=== PATIENT | male | born 1945 | race Caucasian/White ===

== ENCOUNTER 2021-02-05 15:00 | Inpatient (IN) ==
[2021-02-05 16:09] LABS: Basophils # 0.1 K/mcL (0.0-0.2); Basophils % 0.6 %; Eosinophils # 0.1 K/mcL (0.0-0.6); Eosinophils % 1.2 %; Hemoglobin 12.3 g/dL (12.9-16.9); Immature Granulocytes % 2.7 % (0-4); Lymphocytes # 2.1 K/mcL (0.6-4.6); Lymphocytes % 18.4 %; Mean Corpuscular HGB Conc 32.4 g/dL (31.6-35.5); Mean Corpuscular Hemoglobin 29.3 pg (28.0-33.3); Mean Corpuscular Volume 90.5 fL (83.0-100.0); Mean Platelet Volume 9.2 fL (9.4-12.4); Monocytes # 1.1 K/mcL (0.0-1.3); Monocytes % 9.5 %; Neutrophils # 7.6 K/mcL (1.6-8.9); Platelet Count 358 K/mcL (140-400); Red Cell Distribution Width 13.2 % (11.5-14.5); Segmented Neutrophils % 67.6 %; White Blood Count 11.2 K/mcL (4.3-11.1)
[2021-02-05] MEDS ORDERED: 0.9 % Sodium Chloride 1,000 ML IVC ONE (16:11)
[2021-02-05 16:17] LABS: Alanine Aminotransferase 26 Units/L (7-52); Albumin 3.6 g/dL (3.5-5.7); Albumin/Globulin Ratio 0.9 (1.1-2.2); Alkaline Phosphatase 93 Units/L (34-104); Aspartate Amino Transferase 25 Units/L (13-39); BUN/Creatinine Ratio 16 (6-26); Bilirubin,Total 0.6 mg/dL (0.3-1.0); Blood Urea Nitrogen 35 mg/dL (8-23); Calcium 9.4 mg/dL (8.6-10.3); Carbon Dioxide 25 mEq/L (23-29); Chloride 97 mEq/L (98-107); Globulin 3.8 g/dL (2.4-3.5); Glucose 133 mg/dL (70-105); Osmolality,Calculated 284 (280-300); Potassium 4.8 mEq/L (3.5-5.1); Sodium 132 mEq/L (136-145); Total Protein 7.4 g/dL (6.4-8.9); eGFR For African Americans 35 (> 60); eGFR For Non-African Americans 29 (> 60)
[2021-02-05 16:24] LABS: Troponin I < 0.03 ng/mL (< 0.04)
[2021-02-05] MEDS ORDERED: Clindamycin 900 MG/50 ML 900 MG/50 ML IV.SOLN IVPB ONE (17:08)
[2021-02-05 17:34] LABS: Adenovirus Not Detected (Not Detect); Bordetella Pertussis Not Detected (Not Detect); Chlamydophila pneumoniae Not Detected (Not Detect); Coronavirus 229E Not Detected (Not Detect); Coronavirus HKU1 Not Detected (Not Detect); Coronavirus NL63 Not Detected (Not Detect); Coronavirus OC43 Not Detected (Not Detect); Human Metapneumovirus Not Detected (Not Detect); Human Rhinovirus/Enterovirus Not Detected (Not Detect); Influenza A Subtype 2009 H1 Not Detected (Not Detect); Influenza B Not Detected (Not Detect); Mycoplasma pneumoniae Not Detected (Not Detect); Parainfluenza Virus 1 Not Detected (Not Detect); Parainfluenza Virus 2 Not Detected (Not Detect); Parainfluenza Virus 3 Not Detected (Not Detect); Parainfluenza Virus 4 Not Detected (Not Detect); Respiratory Syncytial Virus Not Detected (Not Detect); SARS-CoV-2 Not Detected (Not Detect)
[2021-02-05 17:42] LABS: Bilirubin,Urine Negative (Negative); Blood,Urine Negative (Negative); Clarity,Urine Clear (Clear); Color,Urine Light-Yellow (Yellow); Glucose,Urine (UA) Normal (Normal); Ketones,Urine Negative (Negative); Leukocyte Esterase,Urine Negative (Negative); Nitrite,Urine Negative (Negative); PH,Urine 5.5 pH Units (5.0-8.0); Protein,Urine Negative (Neg-Trace); Urobilinogen,Urine Normal (Normal)
[2021-02-05] MEDS ORDERED: Vancomycin 1,750 MG in 0.9 % Sodium Chloride 250 ML IVPB SCH ×2 (18:00→19:00)
[2021-02-05] MEDS ORDERED: MOM Conc 10 ML UD.LIQ PO PRN (18:09)
[2021-02-05] MEDS ORDERED: Ondansetron ODT 4 MG TAB.RAPDIS SL PRN (18:09)
[2021-02-05] MEDS ORDERED: Mag Hydrox/Al Hydrox/Simeth 30 ML UDC PO PRN (18:09)
[2021-02-05] MEDS ORDERED: Naloxone 0.4 MG/ML INJ IVP PRN (18:09)
[2021-02-05] MEDS ORDERED: Melatonin 3 MG TABLET PO PRN (18:09)
[2021-02-05] MEDS ORDERED: *HR* Dextrose 50 % in Water (Vial) 50 ML VIAL IVP PRN (18:10)
[2021-02-05] MEDS ORDERED: D5% in Water 1,000 ML IVC PRN (18:10)
[2021-02-05] MEDS ORDERED: Dextrose Gel 15 GM/37.5 ML TUBE PO PRN ×2 (18:10)
[2021-02-05] MEDS ORDERED: Insulin LISPRO 300 UNITS/3 ML VIAL SUBQ SCH (18:15)
[2021-02-05 18:57] LABS: Estimated Average Glucose 197 mg/dl; Hemoglobin A1C 8.5 %
[2021-02-05] MEDS ORDERED: Vancomycin 1,750 MG/517.5 ML IV.SOLN IVPB SCH (20:00)
[2021-02-05] MEDS: 0.9 % Sodium Chloride 1,000 ML IVC SCH (22:43)
[2021-02-05] MEDS: Insulin LISPRO 300 UNITS/3 ML VIAL SUBQ SCH (22:44)
[2021-02-06] MEDS: Clindamycin 600 MG/50 ML 600 MG/50 ML IV.SOLN IVPB SCH ×3 (00:28→08:35)
[2021-02-06 05:36] LABS: Hematocrit 33.6 % (37.5-50.1); Hemoglobin 10.9 g/dL (12.9-16.9); Mean Corpuscular HGB Conc 32.4 g/dL (31.6-35.5); Mean Corpuscular Hemoglobin 29.8 pg (28.0-33.3); Mean Corpuscular Volume 91.8 fL (83.0-100.0); Mean Platelet Volume 9.2 fL (9.4-12.4); Platelet Count 319 K/mcL (140-400); Red Blood Count 3.66 M/mcL (4.19-5.50); Red Cell Distribution Width 13.2 % (11.5-14.5); White Blood Count 9.4 K/mcL (4.3-11.1)
[2021-02-06 05:56] LABS: Albumin 3.2 g/dL (3.5-5.7); Bilirubin,Total 0.6 mg/dL (0.3-1.0); Calcium 8.8 mg/dL (8.6-10.3); Globulin 3.2 g/dL (2.4-3.5); Potassium 4.5 mEq/L (3.5-5.1); Total Protein 6.4 g/dL (6.4-8.9)
[2021-02-06] MEDS: Insulin LISPRO 300 UNITS/3 ML VIAL SUBQ SCH ×4 (08:31→22:28)
[2021-02-06] MEDS ORDERED: Isosorbide MONOnitrate (24 HR) 60 MG TAB.ER.24H PO PRN (14:20)
[2021-02-06] MEDS ORDERED: Bupivacaine-MPF 0.25% 10 ML VIAL ONE (15:04)
[2021-02-06] MEDS ORDERED: Lidocaine/EPI 1:200k 1% PF 10 ML VIAL ONE (15:04)
[2021-02-06] MEDS ORDERED: Lidocaine 1% 20 ML MDV ONE (15:08)
[2021-02-06] MEDS: metroNIDAZOLE 500 MG TABLET PO SCH ×2 (15:09→22:28)
[2021-02-06] MEDS ORDERED: Acetaminophen IV 1,000 MG/100 ML BAG IVPB ONE (15:40)
[2021-02-06] MEDS ORDERED: Lidocaine -MPF 2% 2 ML VIAL ONE (15:40)
[2021-02-06] MEDS ORDERED: Famotidine 20 MG/2 ML VIAL ONE (15:40)
[2021-02-06] MEDS ORDERED: *HR* HYDROmorphone PF 0.5 MG/0.5 ML SYRINGE IVP PRN (16:18)
[2021-02-06] MEDS ORDERED: Ondansetron 4 MG/2 ML VIAL IVP PRN (16:18)
[2021-02-06] MEDS ORDERED: *HR* FentaNYL (PF) 100 MCG/2 ML VIAL ONE ×2 (16:19→16:58)
[2021-02-06] MEDS ORDERED: *HR* Succinylcholine 200 MG/10 ML VIAL IVP ONE (16:20)
[2021-02-06] MEDS ORDERED: Lidocaine HCL 4 ML Topical Solution (Laryng-O-Jet Kit Sterile Pak) TP ONE (16:20)
[2021-02-06] MEDS ORDERED: *HR* OxyCODONE Immed Rel 5 MG TABLET PO STA (17:47)
[2021-02-06] MEDS ORDERED: Cefepime HCl 1,000 MG in 0.9 % Sodium Chloride Mini Bag 100 ML IVPB SCH (18:00)
[2021-02-06] MEDS ORDERED: Acetaminophen 325 MG TABLET PO PRN (21:40)
[2021-02-06] MEDS ORDERED: Morphine Sulfate 2 MG/ML SYRINGE IVP ONE (21:42)
[2021-02-06] MEDS: Cefepime HCl 1,000 MG in 0.9 % Sodium Chloride Mini Bag 100 ML IVPB SCH (22:24)
[2021-02-06] MEDS: 0.9 % Sodium Chloride 1,000 ML IVC SCH (22:25)
[2021-02-06] MEDS: *HR* OxyCODONE/APAP 5/325 TABLET PO PRN (22:26)
[2021-02-06] MEDS: Nystatin SUSP 5 ML UD.LIQ PO SCH (22:26)
[2021-02-06] MEDS: carvediloL 6.25 MG TABLET PO SCH (22:27)
[2021-02-07] MEDS ORDERED: Vancomycin 1,750 MG/517.5 ML IV.SOLN IVPB SCH (01:00)
[2021-02-07] MEDS: *HR* OxyCODONE/APAP 5/325 TABLET PO PRN (04:58)
[2021-02-07 05:23] LABS: Basophils % 0.3 %; Hematocrit 35.9 % (37.5-50.1); Hemoglobin 11.4 g/dL (12.9-16.9); Immature Granulocytes % 1.7 % (0-4); Lymphocytes % 9.8 %; Mean Corpuscular HGB Conc 31.8 g/dL (31.6-35.5); Mean Corpuscular Hemoglobin 29.6 pg (28.0-33.3); Mean Corpuscular Volume 93.2 fL (83.0-100.0); Mean Platelet Volume 9.2 fL (9.4-12.4); Monocytes # 0.6 K/mcL (0.0-1.3); Monocytes % 5.9 %; Neutrophils # 8.5 K/mcL (1.6-8.9); Platelet Count 382 K/mcL (140-400); Red Blood Count 3.85 M/mcL (4.19-5.50); Red Cell Distribution Width 13.1 % (11.5-14.5); Segmented Neutrophils % 82.3 %; White Blood Count 10.3 K/mcL (4.3-11.1)
[2021-02-07 05:43] LABS: BUN/Creatinine Ratio 15 (6-26); Blood Urea Nitrogen 20 mg/dL (8-23); Calcium 9.2 mg/dL (8.6-10.3); Carbon Dioxide 23 mEq/L (23-29); Chloride 106 mEq/L (98-107); Glucose 206 mg/dL (70-105); Osmolality,Calculated 293 (280-300); Sodium 137 mEq/L (136-145); eGFR For African Americans > 60 (> 60); eGFR For Non-African Americans 54 (> 60)
[2021-02-07] MEDS: Nystatin SUSP 5 ML UD.LIQ PO SCH ×2 (08:24→20:55)
[2021-02-07] MEDS: carvediloL 6.25 MG TABLET PO SCH ×2 (08:24→20:55)
[2021-02-07] MEDS: lisinopriL 5 MG TABLET PO SCH (08:25)
[2021-02-07] MEDS: metroNIDAZOLE 500 MG TABLET PO SCH ×3 (08:26→20:55)
[2021-02-07] MEDS: Bumetanide 1 MG TABLET PO SCH (08:26)
[2021-02-07] MEDS: Aspirin Enteric Coated 81 MG Tablet PO SCH (08:27)
[2021-02-07] MEDS: Gabapentin 300 MG CAPSULE PO SCH (08:27)
[2021-02-07] MEDS: Cefepime HCl 1,000 MG in 0.9 % Sodium Chloride Mini Bag 100 ML IVPB SCH ×2 (08:30→21:46)
[2021-02-07] MEDS: Insulin LISPRO 300 UNITS/3 ML VIAL SUBQ SCH ×4 (08:36→20:59)
[2021-02-07] MEDS: *HR* HYDROcodone/Acet 5/325 mg TABLET PO PRN (10:51)
[2021-02-08 01:28] LABS: Basophils # 0.1 K/mcL (0.0-0.2); Basophils % 0.4 %; Eosinophils # 0.1 K/mcL (0.0-0.6); Eosinophils % 0.7 %; Hemoglobin 10.8 g/dL (12.9-16.9); Immature Granulocytes % 1.6 % (0-4); Lymphocytes # 1.6 K/mcL (0.6-4.6); Lymphocytes % 13.8 %; Mean Corpuscular HGB Conc 30.9 g/dL (31.6-35.5); Mean Corpuscular Hemoglobin 28.8 pg (28.0-33.3); Mean Corpuscular Volume 93.3 fL (83.0-100.0); Mean Platelet Volume 9.2 fL (9.4-12.4); Monocytes # 0.9 K/mcL (0.0-1.3); Monocytes % 7.6 %; Platelet Count 352 K/mcL (140-400); Red Blood Count 3.75 M/mcL (4.19-5.50); Red Cell Distribution Width 13.2 % (11.5-14.5); Segmented Neutrophils % 75.9 %; White Blood Count 11.8 K/mcL (4.3-11.1)
[2021-02-08 01:52] LABS: BUN/Creatinine Ratio 15 (6-26); Blood Urea Nitrogen 21 mg/dL (8-23); Carbon Dioxide 24 mEq/L (23-29); Chloride 106 mEq/L (98-107); Glucose 182 mg/dL (70-105); Osmolality,Calculated 296 (280-300); Potassium 4.2 mEq/L (3.5-5.1); Sodium 139 mEq/L (136-145); eGFR For African Americans > 60 (> 60); eGFR For Non-African Americans 51 (> 60)
[2021-02-08] MEDS: Vancomycin 2,000 MG/520 ML IV.SOLN IVPB SCH (04:16)
[2021-02-08] MEDS ORDERED: Vancomycin 1,750 MG/517.5 ML IV.SOLN IVPB SCH (05:00)
[2021-02-08] MEDS ORDERED: Lidocaine 1% 0 ML ONE (07:22)
[2021-02-08] MEDS: carvediloL 6.25 MG TABLET PO SCH ×2 (07:48→21:11)
[2021-02-08] MEDS ORDERED: Ondansetron 4 MG/2 ML VIAL ONE (07:53)
[2021-02-08] MEDS ORDERED: Lidocaine -MPF 2% 2 ML VIAL ONE (07:53)
[2021-02-08] MEDS: Aspirin Enteric Coated 81 MG Tablet PO SCH (07:54)
[2021-02-08] MEDS: Insulin LISPRO 300 UNITS/3 ML VIAL SUBQ SCH ×4 (07:54→21:05)
[2021-02-08] MEDS ORDERED: *HR* Propofol 200 MG/20 ML VIAL IVP ONE (07:54)
[2021-02-08] MEDS: Nystatin SUSP 5 ML UD.LIQ PO SCH ×2 (07:55→21:12)
[2021-02-08] MEDS: Bumetanide 1 MG TABLET PO SCH ×2 (07:55→09:39)
[2021-02-08] MEDS: allopurinoL 300 MG TABLET PO SCH ×2 (07:55→09:39)
[2021-02-08] MEDS: metroNIDAZOLE 500 MG TABLET PO SCH ×4 (07:55→21:12)
[2021-02-08] MEDS: lisinopriL 5 MG TABLET PO SCH (07:55)
[2021-02-08] MEDS: Gabapentin 300 MG CAPSULE PO SCH ×2 (07:55→09:39)
[2021-02-08] MEDS ORDERED: Naloxone 0.4 MG/ML INJ IVP PRN (08:12)
[2021-02-08] MEDS ORDERED: Albuterol 2.5 MG/3 ML NEBULIZER IH PRN (08:12)
[2021-02-08] MEDS ORDERED: Nitroglycerin 0.4 MG TAB.SUBL SL PRN (08:12)
[2021-02-08] MEDS: Cefepime HCl 1,000 MG in 0.9 % Sodium Chloride Mini Bag 100 ML IVPB SCH ×3 (08:20→21:18)
[2021-02-08] MEDS: *HR* HYDROcodone/Acet 5/325 mg TABLET PO PRN (09:38)
[2021-02-08] MEDS: *HR* OxyCODONE/APAP 5/325 TABLET PO PRN (12:23)
[2021-02-09] MEDS: Vancomycin 2,000 MG/520 ML IV.SOLN IVPB SCH (04:27)
[2021-02-09 05:29] LABS: Basophils # 0.1 K/mcL (0.0-0.2); Basophils % 0.5 %; Eosinophils # 0.1 K/mcL (0.0-0.6); Eosinophils % 0.9 %; Hematocrit 33.7 % (37.5-50.1); Hemoglobin 10.7 g/dL (12.9-16.9); Immature Granulocytes % 2.6 % (0-4); Lymphocytes # 1.9 K/mcL (0.6-4.6); Lymphocytes % 18.8 %; Mean Corpuscular HGB Conc 31.8 g/dL (31.6-35.5); Mean Corpuscular Hemoglobin 29.8 pg (28.0-33.3); Mean Corpuscular Volume 93.9 fL (83.0-100.0); Monocytes # 1.1 K/mcL (0.0-1.3); Monocytes % 10.5 %; Neutrophils # 6.7 K/mcL (1.6-8.9); Platelet Count 338 K/mcL (140-400); Red Blood Count 3.59 M/mcL (4.19-5.50); Red Cell Distribution Width 13.3 % (11.5-14.5); Segmented Neutrophils % 66.7 %
[2021-02-09 05:57] LABS: BUN/Creatinine Ratio 14 (6-26); Blood Urea Nitrogen 16 mg/dL (8-23); Calcium 8.6 mg/dL (8.6-10.3); Carbon Dioxide 22 mEq/L (23-29); Chloride 106 mEq/L (98-107); Glucose 143 mg/dL (70-105); Osmolality,Calculated 290 (280-300); Potassium 4.1 mEq/L (3.5-5.1); Sodium 138 mEq/L (136-145); eGFR For African Americans > 60 (> 60); eGFR For Non-African Americans > 60 (> 60)
[2021-02-09] MEDS: Aspirin Enteric Coated 81 MG Tablet PO SCH (08:16)
[2021-02-09] MEDS: allopurinoL 300 MG TABLET PO SCH (08:16)
[2021-02-09] MEDS: Bumetanide 1 MG TABLET PO SCH (08:16)
[2021-02-09] MEDS: Nystatin SUSP 5 ML UD.LIQ PO SCH ×2 (08:16→21:46)
[2021-02-09] MEDS: lisinopriL 5 MG TABLET PO SCH (08:17)
[2021-02-09] MEDS: metroNIDAZOLE 500 MG TABLET PO SCH ×3 (08:18→21:47)
[2021-02-09] MEDS: carvediloL 6.25 MG TABLET PO SCH ×2 (08:18→21:47)
[2021-02-09] MEDS: Gabapentin 300 MG CAPSULE PO SCH (08:18)
[2021-02-09] MEDS: Cefepime HCl 1,000 MG in 0.9 % Sodium Chloride Mini Bag 100 ML IVPB SCH ×2 (08:19→21:48)
[2021-02-09] MEDS: Insulin LISPRO 300 UNITS/3 ML VIAL SUBQ SCH ×4 (08:22→21:47)
[2021-02-09] MEDS: *HR* Heparin 5,000 UNIT/ML VIAL SQ SCH (17:17)
[2021-02-10 03:36] LABS: Basophils # 0.1 K/mcL (0.0-0.2); Basophils % 0.6 %; Eosinophils # 0.1 K/mcL (0.0-0.6); Eosinophils % 1.3 %; Hematocrit 34.7 % (37.5-50.1); Immature Granulocytes % 4.6 % (0-4); Lymphocytes % 20.6 %; Mean Corpuscular HGB Conc 31.7 g/dL (31.6-35.5); Mean Corpuscular Hemoglobin 29.4 pg (28.0-33.3); Mean Corpuscular Volume 92.8 fL (83.0-100.0); Mean Platelet Volume 8.8 fL (9.4-12.4); Monocytes # 0.9 K/mcL (0.0-1.3); Monocytes % 9.2 %; Neutrophils # 6.1 K/mcL (1.6-8.9); Platelet Count 338 K/mcL (140-400); Red Blood Count 3.74 M/mcL (4.19-5.50); Red Cell Distribution Width 13.3 % (11.5-14.5); Segmented Neutrophils % 63.7 %; White Blood Count 9.7 K/mcL (4.3-11.1)
[2021-02-10 03:54] LABS: BUN/Creatinine Ratio 14 (6-26); Blood Urea Nitrogen 16 mg/dL (8-23); Calcium 8.9 mg/dL (8.6-10.3); Carbon Dioxide 28 mEq/L (23-29); Chloride 104 mEq/L (98-107); Glucose 144 mg/dL (70-105); Osmolality,Calculated 292 (280-300); Potassium 3.8 mEq/L (3.5-5.1); Sodium 139 mEq/L (136-145); eGFR For African Americans > 60 (> 60); eGFR For Non-African Americans > 60 (> 60)
[2021-02-10] MEDS: Vancomycin 2,000 MG/520 ML IV.SOLN IVPB SCH (04:10)
[2021-02-10] MEDS: *HR* Heparin 5,000 UNIT/ML VIAL SQ SCH ×2 (06:08→17:32)
[2021-02-10] MEDS: lisinopriL 5 MG TABLET PO SCH (08:55)
[2021-02-10] MEDS: Bumetanide 1 MG TABLET PO SCH (08:55)
[2021-02-10] MEDS: Aspirin Enteric Coated 81 MG Tablet PO SCH (08:55)
[2021-02-10] MEDS: metroNIDAZOLE 500 MG TABLET PO SCH ×3 (08:55→20:23)
[2021-02-10] MEDS: Nystatin SUSP 5 ML UD.LIQ PO SCH ×2 (08:56→20:21)
[2021-02-10] MEDS: allopurinoL 300 MG TABLET PO SCH (08:56)
[2021-02-10] MEDS: carvediloL 6.25 MG TABLET PO SCH ×2 (08:56→20:23)
[2021-02-10] MEDS: Gabapentin 300 MG CAPSULE PO SCH (08:56)
[2021-02-10] MEDS: Insulin LISPRO 300 UNITS/3 ML VIAL SUBQ SCH ×4 (08:57→20:18)
[2021-02-10] MEDS: Cefepime HCl 1,000 MG in 0.9 % Sodium Chloride Mini Bag 100 ML IVPB SCH (08:58)
[2021-02-10] MEDS ORDERED: Gadolinium Contrast Agent (WT Based) IV PRN (11:55)
[2021-02-10] MEDS: Cefepime HCl 2,000 MG in 0.9 % Sodium Chloride Mini Bag 100 ML IVPB SCH (17:32)
[2021-02-11 02:47] LABS: BUN/Creatinine Ratio 11 (6-26); Blood Urea Nitrogen 13 mg/dL (8-23); Calcium 9.2 mg/dL (8.6-10.3); Carbon Dioxide 26 mEq/L (23-29); Chloride 103 mEq/L (98-107); Glucose 129 mg/dL (70-105); Osmolality,Calculated 292 (280-300); Sodium 140 mEq/L (136-145); eGFR For African Americans > 60 (> 60); eGFR For Non-African Americans > 60 (> 60)
[2021-02-11] MEDS: Vancomycin 2,000 MG/520 ML IV.SOLN IVPB SCH (03:49)
[2021-02-11] MEDS: Cefepime HCl 2,000 MG in 0.9 % Sodium Chloride Mini Bag 100 ML IVPB SCH ×2 (06:36→17:13)
[2021-02-11] MEDS: *HR* Heparin 5,000 UNIT/ML VIAL SQ SCH ×2 (06:37→17:13)
[2021-02-11] MEDS: lisinopriL 5 MG TABLET PO SCH (08:44)
[2021-02-11] MEDS: metroNIDAZOLE 500 MG TABLET PO SCH ×3 (08:44→21:55)
[2021-02-11] MEDS: Aspirin Enteric Coated 81 MG Tablet PO SCH (08:44)
[2021-02-11] MEDS: Bumetanide 1 MG TABLET PO SCH (08:45)
[2021-02-11] MEDS: Gabapentin 300 MG CAPSULE PO SCH (08:45)
[2021-02-11] MEDS: Nystatin SUSP 5 ML UD.LIQ PO SCH ×2 (08:45→21:55)
[2021-02-11] MEDS: carvediloL 6.25 MG TABLET PO SCH ×2 (08:45→21:55)
[2021-02-11] MEDS: allopurinoL 300 MG TABLET PO SCH (08:45)
[2021-02-11] MEDS: Insulin LISPRO 300 UNITS/3 ML VIAL SUBQ SCH ×4 (08:46→21:55)
[2021-02-12 03:43] LABS: Basophils # 0.1 K/mcL (0.0-0.2); Basophils % 1.1 %; Eosinophils # 0.2 K/mcL (0.0-0.6); Eosinophils % 1.4 %; Hematocrit 36.4 % (37.5-50.1); Hemoglobin 11.2 g/dL (12.9-16.9); Immature Granulocytes % 5.5 % (0-4); Lymphocytes # 2.5 K/mcL (0.6-4.6); Lymphocytes % 19.8 %; Mean Corpuscular HGB Conc 30.8 g/dL (31.6-35.5); Mean Corpuscular Hemoglobin 28.9 pg (28.0-33.3); Mean Corpuscular Volume 93.8 fL (83.0-100.0); Mean Platelet Volume 8.9 fL (9.4-12.4); Monocytes # 1.2 K/mcL (0.0-1.3); Monocytes % 9.4 %; Neutrophils # 7.9 K/mcL (1.6-8.9); Nucleated Red Blood Cells 0.2 /100 WBC (0); Platelet Count 334 K/mcL (140-400); Red Blood Count 3.88 M/mcL (4.19-5.50); Red Cell Distribution Width 13.5 % (11.5-14.5); Segmented Neutrophils % 62.8 %; White Blood Count 12.6 K/mcL (4.3-11.1)
[2021-02-12 03:59] LABS: INR 1.4; Prothrombin Time 15.7 Seconds (9.4-12.1)
[2021-02-12 04:00] LABS: BUN/Creatinine Ratio 13 (6-26); Blood Urea Nitrogen 18 mg/dL (8-23); Calcium 9.1 mg/dL (8.6-10.3); Carbon Dioxide 30 mEq/L (23-29); Chloride 103 mEq/L (98-107); Glucose 133 mg/dL (70-105); Osmolality,Calculated 292 (280-300); Potassium 4.2 mEq/L (3.5-5.1); Sodium 139 mEq/L (136-145); eGFR For African Americans > 60 (> 60); eGFR For Non-African Americans 50 (> 60)
[2021-02-12 04:30] LABS: Platelet Estimate Normal (Normal)
[2021-02-12] MEDS: Vancomycin 2,000 MG/520 ML IV.SOLN IVPB SCH (05:00)
[2021-02-12] MEDS: Cefepime HCl 2,000 MG in 0.9 % Sodium Chloride Mini Bag 100 ML IVPB SCH ×2 (05:42→16:17)
[2021-02-12] MEDS: *HR* Heparin 5,000 UNIT/ML VIAL SQ SCH ×2 (05:47→16:15)
[2021-02-12] MEDS: lisinopriL 5 MG TABLET PO SCH (09:19)
[2021-02-12] MEDS: Gabapentin 300 MG CAPSULE PO SCH (09:20)
[2021-02-12] MEDS: Aspirin Enteric Coated 81 MG Tablet PO SCH (09:20)
[2021-02-12] MEDS: metroNIDAZOLE 500 MG TABLET PO SCH ×3 (09:20→21:44)
[2021-02-12] MEDS: Bumetanide 1 MG TABLET PO SCH (09:20)
[2021-02-12] MEDS: carvediloL 6.25 MG TABLET PO SCH ×2 (09:21→16:16)
[2021-02-12] MEDS: Insulin LISPRO 300 UNITS/3 ML VIAL SUBQ SCH ×3 (09:21→16:33)
[2021-02-12] MEDS: Nystatin SUSP 5 ML UD.LIQ PO SCH ×3 (09:21→21:48)
[2021-02-12] MEDS: allopurinoL 300 MG TABLET PO SCH (09:21)
[2021-02-12] MEDS ORDERED: Vancomycin 1,000 MG VIAL ONE (12:30)
[2021-02-12] MEDS ORDERED: Lidocaine -MPF 2% 2 ML VIAL ONE (12:30)
[2021-02-12] MEDS ORDERED: *HR* FentaNYL (PF) 100 MCG/2 ML VIAL ONE (12:30)
[2021-02-12] MEDS: *HR* HYDROcodone/Acet 5/325 mg TABLET PO PRN (16:17)
[2021-02-12] MEDS ORDERED: Vancomycin 1,000 MG, Sodium Chloride IRRigation 1,000 ML IR ONE (18:35)
[2021-02-12] MEDS ORDERED: Insulin DETEMIR 100 UNIT/ML X5UNITS SUBQ SCH (21:00)
[2021-02-12] MEDS: *HR* OxyCODONE/APAP 5/325 TABLET PO PRN (21:43)
[2021-02-13 03:20] LABS: Basophils # 0.1 K/mcL (0.0-0.2); Basophils % 1.2 %; Eosinophils # 0.2 K/mcL (0.0-0.6); Eosinophils % 1.5 %; Hematocrit 37.3 % (37.5-50.1); Hemoglobin 11.5 g/dL (12.9-16.9); Immature Granulocytes % 5.9 % (0-4); Lymphocytes # 2.4 K/mcL (0.6-4.6); Lymphocytes % 21.1 %; Mean Corpuscular HGB Conc 30.8 g/dL (31.6-35.5); Mean Corpuscular Hemoglobin 29.1 pg (28.0-33.3); Mean Corpuscular Volume 94.4 fL (83.0-100.0); Mean Platelet Volume 8.9 fL (9.4-12.4); Monocytes # 0.9 K/mcL (0.0-1.3); Neutrophils # 7.1 K/mcL (1.6-8.9); Platelet Count 294 K/mcL (140-400); Red Blood Count 3.95 M/mcL (4.19-5.50); Red Cell Distribution Width 13.4 % (11.5-14.5); Segmented Neutrophils % 62.3 %; White Blood Count 11.4 K/mcL (4.3-11.1)
[2021-02-13 03:42] LABS: BUN/Creatinine Ratio 12 (6-26); Blood Urea Nitrogen 15 mg/dL (8-23); Calcium 9.2 mg/dL (8.6-10.3); Carbon Dioxide 28 mEq/L (23-29); Chloride 106 mEq/L (98-107); Glucose 113 mg/dL (70-105); Magnesium 1.5 mg/dL (1.6-2.6); Osmolality,Calculated 294 (280-300); Potassium 4.2 mEq/L (3.5-5.1); Sodium 141 mEq/L (136-145); eGFR For African Americans > 60 (> 60); eGFR For Non-African Americans 58 (> 60)
[2021-02-13 04:05] LABS: Platelet Estimate Normal (Normal)
[2021-02-13] MEDS: Cefepime HCl 2,000 MG in 0.9 % Sodium Chloride Mini Bag 100 ML IVPB SCH (06:22)
[2021-02-13] MEDS: *HR* Heparin 5,000 UNIT/ML VIAL SQ SCH ×2 (06:22→16:27)
[2021-02-13] MEDS: carvediloL 6.25 MG TABLET PO SCH ×2 (08:45→16:28)
[2021-02-13] MEDS: Aspirin Enteric Coated 81 MG Tablet PO SCH (08:46)
[2021-02-13] MEDS: Gabapentin 300 MG CAPSULE PO SCH (08:46)
[2021-02-13] MEDS: Nystatin SUSP 5 ML UD.LIQ PO SCH (08:48)
[2021-02-13] MEDS: allopurinoL 300 MG TABLET PO SCH (08:48)
[2021-02-13] MEDS: Insulin LISPRO 300 UNITS/3 ML VIAL SUBQ SCH ×3 (08:49→18:30)
[2021-02-13] MEDS: metroNIDAZOLE 500 MG TABLET PO SCH ×2 (08:51→16:28)
[2021-02-13] MEDS ORDERED: Vancomycin 1,500 MG/265 ML IV.SOLN IVPB SCH (10:00)
[2021-02-13 11:00] VITALS: BP 125/73
[2021-02-13] MEDS ORDERED: cefTRIAXone 2,000 MG in 0.9 % Sodium Chloride Mini Bag 100 ML IVPB SCH (15:00)
== END 2021-02-13 19:00 | disposition home health service (06) | DRG 616 ==
LOC: EMEROOARM 15:00 → 3NENU 15:00 → SUATTDRO 17:42 → 3NENU 18:09 → SUATTDRO 02-06 16:30
PROVIDERS: ADMIT Internal Medicine; ATTEND Pharmacist

== ENCOUNTER 2021-11-11 15:27 | Inpatient (IN) ==
[2021-11-11] MEDS ORDERED: Isovue-370 500 ML BOTTLE IVP ONE (20:23)
[2021-11-11] MEDS ORDERED: Piperacillin/Tazobactam 3.375 GM in 0.9 % Sodium Chloride Mini Bag 100 ML IVPB ONE (20:24)
[2021-11-11] MEDS ORDERED: Vancomycin 1,750 MG/517.5 ML IV.SOLN IVPB ONE (21:00)
[2021-11-11 22:04] LABS: Basophils # 0.1 K/mcL (0.0-0.2); Basophils % 0.3 %; Eosinophils % 0.1 %; Hematocrit 39.9 % (37.5-50.1); Hemoglobin 12.6 g/dL (12.9-16.9); Immature Granulocytes % 2.2 % (0-4); Lymphocytes # 1.9 K/mcL (0.6-4.6); Mean Corpuscular HGB Conc 31.6 g/dL (31.6-35.5); Mean Platelet Volume 9.2 fL (9.4-12.4); Monocytes # 0.7 K/mcL (0.0-1.3); Monocytes % 4.7 %; Neutrophils # 12.7 K/mcL (1.6-8.9); Platelet Count 320 K/mcL (140-400); Red Cell Distribution Width 15.1 % (11.5-14.5); Segmented Neutrophils % 80.7 %; White Blood Count 15.8 K/mcL (4.3-11.1)
[2021-11-11 22:11] LABS: INR 1.1; Prothrombin Time 12.5 Seconds (9.4-12.1)
[2021-11-11 22:13] LABS: Activated Partial Thrombo Time 32.9 Seconds (26.0-36.0)
[2021-11-11 22:25] LABS: BUN/Creatinine Ratio 32 (6-26); Blood Urea Nitrogen 37 mg/dL (8-23); C-Reactive Protein 28 mg/L (Less than 10); Calcium 9.6 mg/dL (8.6-10.3); Carbon Dioxide 25 mEq/L (23-29); Chloride 101 mEq/L (98-107); Glucose 106 mg/dL (70-105); Osmolality,Calculated 289 (280-300); Potassium 4.8 mEq/L (3.5-5.1); Sodium 135 mEq/L (136-145); eGFR For African Americans > 60 (> 60); eGFR For Non-African Americans > 60 (> 60)
[2021-11-12] MEDS ORDERED: Ondansetron 4 MG/2 ML VIAL IVP PRN ×2 (03:01→19:48)
[2021-11-12] MEDS ORDERED: Naloxone 0.4 MG/ML INJ IVP PRN ×2 (03:01→19:48)
[2021-11-12] MEDS ORDERED: D5% in Water 1,000 ML IVC PRN ×2 (06:28→19:48)
[2021-11-12] MEDS ORDERED: Dextrose Gel 15 GM/37.5 ML TUBE PO PRN ×4 (06:28→19:48)
[2021-11-12] MEDS ORDERED: *HR* Dextrose 50 % in Water (Syg) 50 ML SYRINGE IVP PRN ×2 (06:28→19:48)
[2021-11-12] MEDS ORDERED: Perflutren Lipid Microsphere 1.3 ML in 0.9 % Sodium Chloride 8.7 ML IVP PRN (06:43)
[2021-11-12 06:53] LABS: Basophils # 0.1 K/mcL (0.0-0.2); Basophils % 0.3 %; Eosinophils % 0.2 %; Hematocrit 36.6 % (37.5-50.1); Hemoglobin 11.3 g/dL (12.9-16.9); Immature Granulocytes % 2.1 % (0-4); Lymphocytes # 1.8 K/mcL (0.6-4.6); Lymphocytes % 10.5 %; Mean Corpuscular HGB Conc 30.9 g/dL (31.6-35.5); Mean Corpuscular Hemoglobin 29.4 pg (28.0-33.3); Mean Corpuscular Volume 95.3 fL (83.0-100.0); Mean Platelet Volume 9.2 fL (9.4-12.4); Monocytes # 0.9 K/mcL (0.0-1.3); Monocytes % 5.6 %; Neutrophils # 13.6 K/mcL (1.6-8.9); Platelet Count 307 K/mcL (140-400); Red Blood Count 3.84 M/mcL (4.19-5.50); Red Cell Distribution Width 15.3 % (11.5-14.5); Segmented Neutrophils % 81.3 %; White Blood Count 16.8 K/mcL (4.3-11.1)
[2021-11-12 06:58] LABS: INR 1.1; Prothrombin Time 12.7 Seconds (9.4-12.1)
[2021-11-12 07:01] LABS: Activated Partial Thrombo Time 28.3 Seconds (26.0-36.0)
[2021-11-12 07:44] LABS: Alanine Aminotransferase 19 Units/L (7-52); Albumin 2.8 g/dL (3.5-5.7); Albumin/Globulin Ratio 0.8 (1.1-2.2); Alkaline Phosphatase 83 Units/L (34-104); Aspartate Amino Transferase 14 Units/L (13-39); BUN/Creatinine Ratio 30 (6-26); Bilirubin,Total 0.4 mg/dL (0.3-1.0); Blood Urea Nitrogen 33 mg/dL (8-23); Calcium 8.9 mg/dL (8.6-10.3); Carbon Dioxide 26 mEq/L (23-29); Chloride 105 mEq/L (98-107); Globulin 3.4 g/dL (2.4-3.5); Glucose 83 mg/dL (70-105); Osmolality,Calculated 290 (280-300); Phosphorous 3.2 mg/dL (2.7-4.5); Potassium 4.6 mEq/L (3.5-5.1); Sodium 137 mEq/L (136-145); Total Protein 6.2 g/dL (6.4-8.9); eGFR For African Americans > 60 (> 60); eGFR For Non-African Americans > 60 (> 60)
[2021-11-12 09:14] LABS: Magnesium 1.6 mg/dL (1.6-2.6)
[2021-11-12] MEDS ORDERED: Vancomycin 1,250 MG/262.5 ML IV.SOLN IVPB SCH (11:00)
[2021-11-12] MEDS ORDERED: Gadolinium Contrast Agent (WT Based) IV PRN ×2 (11:12→19:48)
[2021-11-12] MEDS: Piperacillin/Tazobactam 3.375 GM in 0.9 % Sodium Chloride Mini Bag 100 ML IVPB SCH (11:54)
[2021-11-12] MEDS: Insulin LISPRO 300 UNITS/3 ML VIAL SUBQ SCH (12:18)
[2021-11-12] MEDS ORDERED: *HR* Heparin 5,000 UNIT/ML VIAL IVP PRN ×2 (14:12)
[2021-11-12] MEDS ORDERED: *HR* Heparin 5,000 UNIT/ML VIAL IVP ONE ×2 (14:12→19:48)
[2021-11-12] MEDS ORDERED: Heparin 25,000UNIT/250ML 1/2NS 25,000 UNIT/250 ML IV.SOLN IVC SCH (14:15)
[2021-11-12] MEDS ORDERED: *HR* Propofol 200 MG/20 ML VIAL IVP ONE ×2 (16:23→17:09)
[2021-11-12] MEDS ORDERED: Lidocaine -MPF 2% 5 ML VIAL ONE (16:23)
[2021-11-12] MEDS ORDERED: *HR* Magnesium Sulfate 1 GM/2 ML VIAL ONE (16:47)
[2021-11-12] MEDS ORDERED: *HR* FentaNYL (PF) 100 MCG/2 ML VIAL ONE (17:08)
[2021-11-12] MEDS ORDERED: Acetaminophen IV 1,000 MG/100 ML BAG IVPB ONE ×2 (17:52→18:07)
[2021-11-12] MEDS: *HR* FentaNYL (PF) 100 MCG/2 ML VIAL IVP PRN ×4 (18:13→18:37)
[2021-11-12] MEDS: *HR* HYDROmorphone (PF) 1 MG/ML SYRINGE IVP PRN ×4 (18:47→19:05)
[2021-11-12] MEDS ORDERED: Morphine Sulfate 2 MG/ML SYRINGE IVP ONE (20:48)
[2021-11-12] MEDS: Vancomycin 1,250 MG/262.5 ML IV.SOLN IVPB SCH (22:43)
[2021-11-13] MEDS: Insulin LISPRO 300 UNITS/3 ML VIAL SUBQ SCH ×4 (00:16→18:10)
[2021-11-13] MEDS: Piperacillin/Tazobactam 3.375 GM in 0.9 % Sodium Chloride Mini Bag 100 ML IVPB SCH ×3 (00:23→15:27)
[2021-11-13 04:31] LABS: Basophils # 0.1 K/mcL (0.0-0.2); Basophils % 0.4 %; Eosinophils % 0.1 %; Hematocrit 34.3 % (37.5-50.1); Hematocrit 34.4 % (37.5-50.1); Hemoglobin 10.7 g/dL (12.9-16.9); Hemoglobin 10.8 g/dL (12.9-16.9); Lymphocytes % 5.7 %; Mean Corpuscular HGB Conc 31.1 g/dL (31.6-35.5); Mean Corpuscular HGB Conc 31.5 g/dL (31.6-35.5); Mean Corpuscular Hemoglobin 30.1 pg (28.0-33.3); Mean Corpuscular Hemoglobin 30.6 pg (28.0-33.3); Mean Corpuscular Volume 96.6 fL (83.0-100.0); Mean Corpuscular Volume 97.2 fL (83.0-100.0); Mean Platelet Volume 9.3 fL (9.4-12.4); Mean Platelet Volume 9.7 fL (9.4-12.4); Monocytes # 1.1 K/mcL (0.0-1.3); Monocytes % 6.2 %; Neutrophils # 15.3 K/mcL (1.6-8.9); Platelet Count 272 K/mcL (140-400); Platelet Count 280 K/mcL (140-400); Red Blood Count 3.53 M/mcL (4.19-5.50); Red Blood Count 3.56 M/mcL (4.19-5.50); Red Cell Distribution Width 15.4 % (11.5-14.5); Red Cell Distribution Width 15.5 % (11.5-14.5); Segmented Neutrophils % 85.6 %; White Blood Count 17.9 K/mcL (4.3-11.1)
[2021-11-13 04:39] LABS: Heparin anti-factor XA UFH 0.04 IU/mL (0.30-0.70); INR 1.2; Prothrombin Time 13.3 Seconds (9.4-12.1)
[2021-11-13 04:52] LABS: BUN/Creatinine Ratio 27 (6-26); Blood Urea Nitrogen 30 mg/dL (8-23); Calcium 8.9 mg/dL (8.6-10.3); Carbon Dioxide 19 mEq/L (23-29); Chloride 105 mEq/L (98-107); Glucose 126 mg/dL (70-105); Magnesium 1.9 mg/dL (1.6-2.6); Osmolality,Calculated 290 (280-300); Potassium 4.8 mEq/L (3.5-5.1); Sodium 136 mEq/L (136-145); eGFR For African Americans > 60 (> 60); eGFR For Non-African Americans > 60 (> 60)
[2021-11-13 06:06] LABS: Estimated Average Glucose 174 mg/dl; Hemoglobin A1C 7.7 %
[2021-11-13] MEDS ORDERED: *HR* HYDROmorphone (PF) 1 MG/ML SYRINGE IM ONE (09:32)
[2021-11-13] MEDS ORDERED: *HR* HYDROmorphone (PF) 1 MG/ML SYRINGE IVP ONE (09:42)
[2021-11-13] MEDS: Vancomycin 1,250 MG/262.5 ML IV.SOLN IVPB SCH (11:10)
[2021-11-13] MEDS ORDERED: Cyanocobalamin (B-12) 1,000 MCG/ML VIAL SQ ONE (13:53)
[2021-11-13] MEDS: Iron Sucrose Complex 250 MG in 0.9 % Sodium Chloride 250 ML IVPB SCH (15:28)
[2021-11-13] MEDS ORDERED: Nitroglycerin 0.4 MG TAB.SUBL SL PRN (16:58)
[2021-11-13] MEDS: carvediloL 6.25 MG TABLET PO SCH (18:10)
[2021-11-13] MEDS: *HR* Heparin 5,000 UNIT/ML VIAL SQ SCH (18:14)
[2021-11-13] MEDS: Metoprolol XL (24 HR) Succ 25 MG TAB.ER.24H PO SCH (19:51)
[2021-11-13] MEDS: Simethicone 80 MG TAB.CHEW PO PRN (19:51)
[2021-11-13] MEDS: allopurinoL 300 MG TABLET PO SCH (19:52)
[2021-11-13] MEDS ORDERED: Insulin LISPRO 300 UNITS/3 ML VIAL SUBQ SCH (21:00)
[2021-11-13] MEDS ORDERED: Gabapentin 300 MG CAPSULE PO SCH (21:00)
[2021-11-13] MEDS ORDERED: 0.9 % Sodium Chloride 1,000 ML IVC ONE (23:46)
[2021-11-14] MEDS: Piperacillin/Tazobactam 3.375 GM in 0.9 % Sodium Chloride Mini Bag 100 ML IVPB SCH ×4 (00:07→23:24)
[2021-11-14 04:40] LABS: Basophils % 0.2 %; Eosinophils # 0.1 K/mcL (0.0-0.6); Eosinophils % 0.4 %; Hematocrit 29.3 % (37.5-50.1); Hemoglobin 9.3 g/dL (12.9-16.9); Immature Granulocytes % 2.3 % (0-4); Lymphocytes # 1.5 K/mcL (0.6-4.6); Lymphocytes % 11.8 %; Mean Corpuscular HGB Conc 31.7 g/dL (31.6-35.5); Mean Corpuscular Hemoglobin 30.2 pg (28.0-33.3); Mean Corpuscular Volume 95.1 fL (83.0-100.0); Mean Platelet Volume 9.2 fL (9.4-12.4); Monocytes % 7.6 %; Neutrophils # 9.9 K/mcL (1.6-8.9); Platelet Count 265 K/mcL (140-400); Red Blood Count 3.08 M/mcL (4.19-5.50); Red Cell Distribution Width 15.7 % (11.5-14.5); Segmented Neutrophils % 77.7 %; White Blood Count 12.8 K/mcL (4.3-11.1)
[2021-11-14 04:57] LABS: BUN/Creatinine Ratio 25 (6-26); Blood Urea Nitrogen 30 mg/dL (8-23); Calcium 8.6 mg/dL (8.6-10.3); Carbon Dioxide 21 mEq/L (23-29); Chloride 107 mEq/L (98-107); Glucose 105 mg/dL (70-105); Magnesium 1.9 mg/dL (1.6-2.6); Osmolality,Calculated 291 (280-300); Potassium 4.5 mEq/L (3.5-5.1); Sodium 137 mEq/L (136-145); eGFR For African Americans > 60 (> 60); eGFR For Non-African Americans > 60 (> 60)
[2021-11-14] MEDS: *HR* Heparin 5,000 UNIT/ML VIAL SQ SCH (05:15)
[2021-11-14] MEDS ORDERED: Ketorolac 30 MG/ML VIAL IVP ONE (05:22)
[2021-11-14] MEDS: Insulin LISPRO 300 UNITS/3 ML VIAL SUBQ SCH ×4 (08:04→20:35)
[2021-11-14] MEDS: Simethicone 80 MG TAB.CHEW PO PRN (08:04)
[2021-11-14] MEDS: Metoprolol XL (24 HR) Succ 25 MG TAB.ER.24H PO SCH (08:04)
[2021-11-14] MEDS: allopurinoL 300 MG TABLET PO SCH ×2 (08:06→20:34)
[2021-11-14] MEDS: Iron Sucrose Complex 250 MG in 0.9 % Sodium Chloride 250 ML IVPB SCH (08:13)
[2021-11-14] MEDS ORDERED: Bumetanide 1 MG TABLET PO SCH (09:00)
[2021-11-14] MEDS ORDERED: lisinopriL 5 MG TABLET PO SCH ×2 (09:00)
[2021-11-14] MEDS ORDERED: Aspirin Enteric Coated 81 MG Tablet PO SCH (09:00)
[2021-11-14] MEDS ORDERED: predniSONE 10 MG TABLET PO SCH (09:00)
[2021-11-14] MEDS ORDERED: Isosorbide MONOnitrate (24 HR) 30 MG TAB.ER.24H PO SCH (09:00)
[2021-11-14] MEDS: carvediloL 6.25 MG TABLET PO SCH (10:11)
[2021-11-14] MEDS ORDERED: 0.9 % Sodium Chloride 250 ML IVC ONE (11:57)
[2021-11-14] MEDS ORDERED: 0.9 % Sodium Chloride 500 ML IVC SCH (12:15)
[2021-11-14] MEDS ORDERED: *HR* Heparin 5,000 UNIT/ML VIAL IVP PRN ×4 (12:43→15:04)
[2021-11-14] MEDS ORDERED: 0.9 % Sodium Chloride 1,000 ML IVC SCH ×2 (12:44→15:04)
[2021-11-14] MEDS ORDERED: Heparin 25,000UNIT/250ML 1/2NS 25,000 UNIT/250 ML IV.SOLN IVC SCH (12:45)
[2021-11-14] MEDS ORDERED: 0.9 % Sodium Chloride 250 ML IVC PRN ×2 (12:48→15:04)
[2021-11-14 13:15] LABS: Hematocrit 29.7 % (37.5-50.1); Hemoglobin 9.5 g/dL (12.9-16.9); Mean Corpuscular Hemoglobin 30.1 pg (28.0-33.3); Mean Platelet Volume 9.6 fL (9.4-12.4); Platelet Count 289 K/mcL (140-400); Red Blood Count 3.16 M/mcL (4.19-5.50); Red Cell Distribution Width 15.6 % (11.5-14.5); White Blood Count 15.4 K/mcL (4.3-11.1)
[2021-11-14 13:23] LABS: Heparin anti-factor XA UFH < 0.04 IU/mL (0.30-0.70)
[2021-11-14 13:24] LABS: INR 1.2; Prothrombin Time 13.5 Seconds (9.4-12.1)
[2021-11-14] MEDS ORDERED: 0.9 % Sodium Chloride 500 ML ONE (13:45)
[2021-11-14] MEDS ORDERED: 0.9 % Sodium Chloride 500 ML IVC ONE (14:14)
[2021-11-14] MEDS ORDERED: Norepinephrine 4 MG/254 ML IV.SOLN IVC SCH (14:15)
[2021-11-14 14:39] LABS: Bilirubin,Urine Negative (Negative); Blood,Urine Negative (Negative); Clarity,Urine Clear (Clear); Color,Urine Light-Yellow (Yellow); Glucose,Urine (UA) Normal (Normal); Ketones,Urine Negative (Negative); Leukocyte Esterase,Urine Negative (Negative); Nitrite,Urine Negative (Negative); PH,Urine 5.5 pH Units (5.0-8.0); Protein,Urine Negative (Neg-Trace); Specific Gravity,Urine 1.021 (1.010-1.025); Urobilinogen,Urine Normal (Normal)
[2021-11-14] MEDS: Albumin Human 5% 12.5 GM/250 ML IV.SOLN IVC SCH ×2 (14:41→17:45)
[2021-11-14] MEDS ORDERED: Albumin Human 5% 12.5 GM/250 ML IV.SOLN IVC SCH (15:04)
[2021-11-14] MEDS ORDERED: *HR* Dextrose 50 % in Water (Syg) 50 ML SYRINGE IVP PRN (15:04)
[2021-11-14] MEDS ORDERED: Naloxone 0.4 MG/ML INJ IVP PRN (15:04)
[2021-11-14] MEDS ORDERED: Simethicone 80 MG TAB.CHEW PO PRN (15:04)
[2021-11-14] MEDS ORDERED: D5% in Water 1,000 ML IVC PRN (15:04)
[2021-11-14] MEDS ORDERED: Dextrose Gel 15 GM/37.5 ML TUBE PO PRN ×2 (15:04)
[2021-11-14] MEDS ORDERED: Ondansetron 4 MG/2 ML VIAL IVP PRN (15:04)
[2021-11-14] MEDS ORDERED: Nitroglycerin 0.4 MG TAB.SUBL SL PRN (15:04)
[2021-11-14] MEDS ORDERED: Amiodarone Premix 150 MG/100 ML BAG IVPB ONE (15:05)
[2021-11-14] MEDS: Amiodarone Premix 360 MG/200 ML BAG IVC ONE ×2 (15:38→21:03)
[2021-11-14] MEDS: Norepinephrine 4 MG/254 ML IV.SOLN IVC SCH ×2 (15:41→22:06)
[2021-11-14] MEDS: Heparin 25,000UNIT/250ML 1/2NS 25,000 UNIT/250 ML IV.SOLN IVC SCH (16:25)
[2021-11-14] MEDS ORDERED: carvediloL 6.25 MG TABLET PO SCH (17:00)
[2021-11-14] MEDS: Gabapentin 300 MG CAPSULE PO SCH (20:34)
[2021-11-14] MEDS ORDERED: Metoprolol XL (24 HR) Succ 25 MG TAB.ER.24H PO SCH (21:00)
[2021-11-14] MEDS: Amiodarone Premix 360 MG/200 ML BAG IVC SCH (22:24)
[2021-11-15 04:12] LABS: Basophils # 0.1 K/mcL (0.0-0.2); Basophils % 0.3 %; Eosinophils # 0.1 K/mcL (0.0-0.6); Eosinophils % 0.5 %; Hematocrit 29.3 % (37.5-50.1); Immature Granulocytes % 4.9 % (0-4); Lymphocytes # 1.8 K/mcL (0.6-4.6); Lymphocytes % 11.3 %; Mean Corpuscular HGB Conc 30.7 g/dL (31.6-35.5); Mean Corpuscular Hemoglobin 29.6 pg (28.0-33.3); Mean Corpuscular Volume 96.4 fL (83.0-100.0); Mean Platelet Volume 9.2 fL (9.4-12.4); Monocytes # 0.7 K/mcL (0.0-1.3); Monocytes % 4.4 %; Neutrophils # 12.8 K/mcL (1.6-8.9); Platelet Count 257 K/mcL (140-400); Red Blood Count 3.04 M/mcL (4.19-5.50); Red Cell Distribution Width 15.7 % (11.5-14.5); Segmented Neutrophils % 78.6 %; White Blood Count 16.3 K/mcL (4.3-11.1)
[2021-11-15 04:21] LABS: VBG Ionized Calcium 1.09 mmol/L (1.15-1.35)
[2021-11-15 04:32] LABS: Calcium 6.3 mg/dL (8.6-10.3); Magnesium 1.7 mg/dL (1.6-2.6); Potassium 3.6 mEq/L (3.5-5.1)
[2021-11-15] MEDS: Calcium Gluconate 1gm/50mL 1 GM/50 ML BAG IVPB SCH ×2 (05:28→05:49)
[2021-11-15] MEDS: Piperacillin/Tazobactam 3.375 GM in 0.9 % Sodium Chloride Mini Bag 100 ML IVPB SCH ×4 (07:41→23:40)
[2021-11-15] MEDS: Insulin LISPRO 300 UNITS/3 ML VIAL SUBQ SCH ×5 (07:41→19:39)
[2021-11-15] MEDS: Amiodarone Premix 360 MG/200 ML BAG IVC SCH ×2 (07:43→18:59)
[2021-11-15] MEDS: Aspirin Enteric Coated 81 MG Tablet PO SCH (07:47)
[2021-11-15] MEDS: predniSONE 10 MG TABLET PO SCH (07:48)
[2021-11-15] MEDS: allopurinoL 300 MG TABLET PO SCH ×2 (07:51→19:48)
[2021-11-15] MEDS ORDERED: lisinopriL 5 MG TABLET PO SCH (09:00)
[2021-11-15] MEDS ORDERED: Bumetanide 1 MG TABLET PO SCH (09:00)
[2021-11-15] MEDS ORDERED: Isosorbide MONOnitrate (24 HR) 30 MG TAB.ER.24H PO SCH (09:00)
[2021-11-15] MEDS: Heparin 25,000UNIT/250ML 1/2NS 25,000 UNIT/250 ML IV.SOLN IVC SCH ×2 (09:07→22:00)
[2021-11-15 14:20] LABS: Magnesium 2.4 mg/dL (1.6-2.6); Potassium 4.7 mEq/L (3.5-5.1)
[2021-11-15] MEDS: Norepinephrine 4 MG/254 ML IV.SOLN IVC SCH (16:19)
[2021-11-15] MEDS: Gabapentin 300 MG CAPSULE PO SCH (19:48)
[2021-11-16 04:38] LABS: Basophils % 0.2 %; Eosinophils # 0.1 K/mcL (0.0-0.6); Eosinophils % 1.2 %; Hematocrit 28.3 % (37.5-50.1); Hemoglobin 8.9 g/dL (12.9-16.9); Immature Granulocytes % 3.2 % (0-4); Lymphocytes # 1.6 K/mcL (0.6-4.6); Lymphocytes % 13.3 %; Mean Corpuscular HGB Conc 31.4 g/dL (31.6-35.5); Mean Corpuscular Volume 95.3 fL (83.0-100.0); Mean Platelet Volume 9.6 fL (9.4-12.4); Monocytes # 0.7 K/mcL (0.0-1.3); Monocytes % 5.7 %; Platelet Count 223 K/mcL (140-400); Red Blood Count 2.97 M/mcL (4.19-5.50); Red Cell Distribution Width 15.8 % (11.5-14.5); Segmented Neutrophils % 76.4 %; White Blood Count 11.7 K/mcL (4.3-11.1)
[2021-11-16 04:59] LABS: Albumin 2.7 g/dL (3.5-5.7); Bilirubin,Total 0.6 mg/dL (0.3-1.0); Calcium 8.1 mg/dL (8.6-10.3); Globulin 2.6 g/dL (2.4-3.5); Magnesium 2.3 mg/dL (1.6-2.6); Phosphorous 4.2 mg/dL (2.7-4.5); Potassium 4.6 mEq/L (3.5-5.1); Total Protein 5.3 g/dL (6.4-8.9)
[2021-11-16] MEDS: Piperacillin/Tazobactam 3.375 GM in 0.9 % Sodium Chloride Mini Bag 100 ML IVPB SCH (08:31)
[2021-11-16] MEDS: Insulin LISPRO 300 UNITS/3 ML VIAL SUBQ SCH ×4 (08:51→21:30)
[2021-11-16 09:13] LABS: Troponin I 7.23 ng/mL (< 0.04)
[2021-11-16] MEDS: allopurinoL 300 MG TABLET PO SCH ×2 (12:13→21:08)
[2021-11-16] MEDS: Aspirin Enteric Coated 81 MG Tablet PO SCH (12:13)
[2021-11-16] MEDS: predniSONE 10 MG TABLET PO SCH (12:13)
[2021-11-16] MEDS: Norepinephrine 4 MG/254 ML IV.SOLN IVC SCH ×2 (12:16→23:50)
[2021-11-16] MEDS: Heparin 25,000UNIT/250ML 1/2NS 25,000 UNIT/250 ML IV.SOLN IVC SCH (13:10)
[2021-11-16] MEDS ORDERED: Albumin 25% 25gram/100mL 25 GM/100 ML IV.SOLN IVPB ONE (13:34)
[2021-11-16] MEDS ORDERED: Furosemide 20 MG/2 ML VIAL IVP ONE (15:00)
[2021-11-16] MEDS: ceFAZolin 2,000 MG in 0.9 % Sodium Chloride 100 ML IVPB SCH ×2 (16:09→23:50)
[2021-11-16] MEDS: Gabapentin 300 MG CAPSULE PO SCH (21:08)
[2021-11-17 04:14] LABS: Basophils % 0.3 %; Eosinophils # 0.1 K/mcL (0.0-0.6); Eosinophils % 0.7 %; Hematocrit 27.4 % (37.5-50.1); Hemoglobin 8.6 g/dL (12.9-16.9); Lymphocytes # 1.1 K/mcL (0.6-4.6); Lymphocytes % 12.3 %; Mean Corpuscular HGB Conc 31.4 g/dL (31.6-35.5); Mean Corpuscular Hemoglobin 29.9 pg (28.0-33.3); Mean Corpuscular Volume 95.1 fL (83.0-100.0); Mean Platelet Volume 9.6 fL (9.4-12.4); Monocytes # 0.6 K/mcL (0.0-1.3); Monocytes % 6.1 %; Neutrophils # 7.1 K/mcL (1.6-8.9); Platelet Count 209 K/mcL (140-400); Red Blood Count 2.88 M/mcL (4.19-5.50); Segmented Neutrophils % 77.6 %; White Blood Count 9.2 K/mcL (4.3-11.1)
[2021-11-17 04:31] LABS: Calcium 8.1 mg/dL (8.6-10.3); Magnesium 2.2 mg/dL (1.6-2.6); Potassium 4.5 mEq/L (3.5-5.1)
[2021-11-17] MEDS ORDERED: Perflutren Lipid Microsphere 1.3 ML in 0.9 % Sodium Chloride 8.7 ML IVP PRN (06:52)
[2021-11-17] MEDS: allopurinoL 300 MG TABLET PO SCH ×2 (09:18→20:25)
[2021-11-17] MEDS: Aspirin Enteric Coated 81 MG Tablet PO SCH (09:18)
[2021-11-17] MEDS: predniSONE 10 MG TABLET PO SCH (09:18)
[2021-11-17] MEDS: Insulin LISPRO 300 UNITS/3 ML VIAL SUBQ SCH ×4 (09:20→20:25)
[2021-11-17] MEDS: ceFAZolin 2,000 MG in 0.9 % Sodium Chloride 100 ML IVPB SCH (09:22)
[2021-11-17] MEDS ORDERED: Albumin 25% 25gram/100mL 25 GM/100 ML IV.SOLN IVPB ONE (10:00)
[2021-11-17] MEDS: Norepinephrine 4 MG/254 ML IV.SOLN IVC SCH (11:17)
[2021-11-17] MEDS ORDERED: Furosemide 20 MG/2 ML VIAL IVP ONE ×2 (11:40→14:55)
[2021-11-17] MEDS ORDERED: D5% in Water 1,000 ML IVC PRN (14:55)
[2021-11-17] MEDS ORDERED: *HR* Dextrose 50 % in Water (Syg) 50 ML SYRINGE IVP PRN (14:55)
[2021-11-17] MEDS ORDERED: *HR* Heparin 5,000 UNIT/ML VIAL IVP PRN (14:55)
[2021-11-17] MEDS ORDERED: 0.9 % Sodium Chloride 250 ML IVC PRN (14:55)
[2021-11-17] MEDS ORDERED: Ondansetron 4 MG/2 ML VIAL IVP PRN (14:55)
[2021-11-17] MEDS ORDERED: Naloxone 0.4 MG/ML INJ IVP PRN (14:55)
[2021-11-17] MEDS ORDERED: Dextrose Gel 15 GM/37.5 ML TUBE PO PRN ×2 (14:55)
[2021-11-17] MEDS: CeFAZolin 2,000 MG/120 ML BAG IVPB SCH ×2 (16:46→23:37)
[2021-11-17] MEDS: Heparin 25,000UNIT/250ML 1/2NS 25,000 UNIT/250 ML IV.SOLN IVC SCH ×2 (19:34→19:36)
[2021-11-17] MEDS: Gabapentin 300 MG CAPSULE PO SCH (20:25)
[2021-11-18 04:35] LABS: VBG Ionized Calcium 1.25 mmol/L (1.15-1.35)
[2021-11-18 04:49] LABS: Basophils % 0.3 %; Eosinophils % 0.4 %; Hematocrit 27.4 % (37.5-50.1); Hemoglobin 8.6 g/dL (12.9-16.9); Immature Granulocytes % 3.8 % (0-4); Lymphocytes # 1.4 K/mcL (0.6-4.6); Lymphocytes % 13.2 %; Mean Corpuscular HGB Conc 31.4 g/dL (31.6-35.5); Mean Corpuscular Hemoglobin 29.8 pg (28.0-33.3); Mean Corpuscular Volume 94.8 fL (83.0-100.0); Mean Platelet Volume 9.9 fL (9.4-12.4); Monocytes # 0.7 K/mcL (0.0-1.3); Monocytes % 6.3 %; Neutrophils # 7.8 K/mcL (1.6-8.9); Platelet Count 219 K/mcL (140-400); Red Blood Count 2.89 M/mcL (4.19-5.50); Red Cell Distribution Width 16.6 % (11.5-14.5); White Blood Count 10.3 K/mcL (4.3-11.1)
[2021-11-18 05:00] LABS: Albumin 2.9 g/dL (3.5-5.7); Albumin/Globulin Ratio 1.1 (1.1-2.2); Bilirubin,Direct 0.2 mg/dL (0.0-0.2); Bilirubin,Indirect 0.2 mg/dL (0.0-1.0); Bilirubin,Total 0.4 mg/dL (0.3-1.0); Calcium 8.4 mg/dL (8.6-10.3); Globulin 2.6 g/dL (2.4-3.5); Phosphorous 3.3 mg/dL (2.7-4.5); Potassium 4.3 mEq/L (3.5-5.1); Total Protein 5.5 g/dL (6.4-8.9)
[2021-11-18] MEDS: allopurinoL 300 MG TABLET PO SCH ×2 (09:25→20:12)
[2021-11-18] MEDS: Aspirin Enteric Coated 81 MG Tablet PO SCH (09:25)
[2021-11-18] MEDS: predniSONE 10 MG TABLET PO SCH (09:25)
[2021-11-18] MEDS: Insulin LISPRO 300 UNITS/3 ML VIAL SUBQ SCH ×4 (09:36→20:11)
[2021-11-18] MEDS: CeFAZolin 2,000 MG/120 ML BAG IVPB SCH ×3 (10:10→23:20)
[2021-11-18] MEDS: Heparin 25,000UNIT/250ML 1/2NS 25,000 UNIT/250 ML IV.SOLN IVC SCH (10:13)
[2021-11-18] MEDS: Nitroglycerin 0.4 MG TAB.SUBL SL PRN ×2 (13:11→13:18)
[2021-11-18] MEDS: Gabapentin 300 MG CAPSULE PO SCH (20:11)
[2021-11-19] MEDS: Heparin 25,000UNIT/250ML 1/2NS 25,000 UNIT/250 ML IV.SOLN IVC SCH ×2 (02:42→18:21)
[2021-11-19 03:07] LABS: Basophils % 0.3 %; Eosinophils % 0.3 %; Hematocrit 25.8 % (37.5-50.1); Hemoglobin 8.3 g/dL (12.9-16.9); Immature Granulocytes % 2.7 % (0-4); Lymphocytes # 1.4 K/mcL (0.6-4.6); Lymphocytes % 13.1 %; Mean Corpuscular HGB Conc 32.2 g/dL (31.6-35.5); Mean Corpuscular Hemoglobin 30.7 pg (28.0-33.3); Mean Corpuscular Volume 95.6 fL (83.0-100.0); Mean Platelet Volume 9.7 fL (9.4-12.4); Monocytes # 0.8 K/mcL (0.0-1.3); Monocytes % 7.8 %; Neutrophils # 7.9 K/mcL (1.6-8.9); Platelet Count 218 K/mcL (140-400); Segmented Neutrophils % 75.8 %; White Blood Count 10.4 K/mcL (4.3-11.1)
[2021-11-19 03:26] LABS: Calcium 8.3 mg/dL (8.6-10.3); Magnesium 1.8 mg/dL (1.6-2.6); Phosphorous 2.6 mg/dL (2.7-4.5); Potassium 4.2 mEq/L (3.5-5.1)
[2021-11-19] MEDS: *HR* Heparin 5,000 UNIT/ML VIAL IVP PRN (03:46)
[2021-11-19] MEDS ORDERED: Calcium Gluconate 1gm/50mL 1 GM/50 ML BAG IVPB ONE (07:41)
[2021-11-19] MEDS: Aspirin Enteric Coated 81 MG Tablet PO SCH (08:24)
[2021-11-19] MEDS: predniSONE 10 MG TABLET PO SCH (08:24)
[2021-11-19] MEDS: Insulin LISPRO 300 UNITS/3 ML VIAL SUBQ SCH ×4 (08:25→20:31)
[2021-11-19] MEDS: allopurinoL 300 MG TABLET PO SCH ×2 (08:25→20:30)
[2021-11-19] MEDS: CeFAZolin 2,000 MG/120 ML BAG IVPB SCH ×3 (08:39→23:34)
[2021-11-19] MEDS: Gabapentin 300 MG CAPSULE PO SCH (20:31)
[2021-11-19] MEDS: Lactobacillus 1 EACH CAP.SPRINK PO SCH (20:31)
[2021-11-20 04:05] LABS: Basophils % 0.2 %; Eosinophils % 0.2 %; Hematocrit 27.4 % (37.5-50.1); Hemoglobin 8.5 g/dL (12.9-16.9); Immature Granulocytes % 3.3 % (0-4); Lymphocytes # 1.8 K/mcL (0.6-4.6); Lymphocytes % 14.2 %; Mean Corpuscular Hemoglobin 29.7 pg (28.0-33.3); Mean Corpuscular Volume 95.8 fL (83.0-100.0); Mean Platelet Volume 9.8 fL (9.4-12.4); Monocytes # 1.2 K/mcL (0.0-1.3); Monocytes % 9.5 %; Neutrophils # 9.4 K/mcL (1.6-8.9); Nucleated Red Blood Cells 0.2 /100 WBC (0); Platelet Count 212 K/mcL (140-400); Red Blood Count 2.86 M/mcL (4.19-5.50); Red Cell Distribution Width 17.1 % (11.5-14.5); Segmented Neutrophils % 72.6 %
[2021-11-20 04:17] LABS: Magnesium 1.7 mg/dL (1.6-2.6); Phosphorous 2.7 mg/dL (2.7-4.5)
[2021-11-20 04:19] LABS: Calcium 8.5 mg/dL (8.6-10.3); Potassium 4.4 mEq/L (3.5-5.1)
[2021-11-20] MEDS: CeFAZolin 2,000 MG/120 ML BAG IVPB SCH ×2 (07:40→17:35)
[2021-11-20] MEDS: Heparin 25,000UNIT/250ML 1/2NS 25,000 UNIT/250 ML IV.SOLN IVC SCH ×2 (07:40→19:55)
[2021-11-20] MEDS: allopurinoL 300 MG TABLET PO SCH ×2 (07:40→20:28)
[2021-11-20] MEDS: Aspirin Enteric Coated 81 MG Tablet PO SCH (07:40)
[2021-11-20] MEDS: Lactobacillus 1 EACH CAP.SPRINK PO SCH ×2 (07:40→20:27)
[2021-11-20] MEDS: Insulin LISPRO 300 UNITS/3 ML VIAL SUBQ SCH ×4 (07:40→20:53)
[2021-11-20] MEDS: predniSONE 10 MG TABLET PO SCH (07:40)
[2021-11-20] MEDS ORDERED: carvediloL 6.25 MG TABLET PO SCH (17:00)
[2021-11-20] MEDS: Gabapentin 300 MG CAPSULE PO SCH (20:27)
[2021-11-21] MEDS: CeFAZolin 2,000 MG/120 ML BAG IVPB SCH ×3 (03:30→16:00)
[2021-11-21 04:19] LABS: Basophils % 0.2 %; Eosinophils # 0.1 K/mcL (0.0-0.6); Eosinophils % 0.5 %; Hematocrit 26.3 % (37.5-50.1); Hemoglobin 8.3 g/dL (12.9-16.9); Immature Granulocytes % 4.1 % (0-4); Lymphocytes # 1.7 K/mcL (0.6-4.6); Lymphocytes % 12.9 %; Mean Corpuscular HGB Conc 31.6 g/dL (31.6-35.5); Mean Corpuscular Hemoglobin 30.1 pg (28.0-33.3); Mean Corpuscular Volume 95.3 fL (83.0-100.0); Mean Platelet Volume 10.1 fL (9.4-12.4); Monocytes # 1.1 K/mcL (0.0-1.3); Monocytes % 8.6 %; Neutrophils # 9.5 K/mcL (1.6-8.9); Nucleated Red Blood Cells 0.2 /100 WBC (0); Platelet Count 217 K/mcL (140-400); Red Blood Count 2.76 M/mcL (4.19-5.50); Red Cell Distribution Width 17.3 % (11.5-14.5); Segmented Neutrophils % 73.7 %; White Blood Count 12.9 K/mcL (4.3-11.1)
[2021-11-21 04:29] LABS: Magnesium 1.7 mg/dL (1.6-2.6); Phosphorous 2.4 mg/dL (2.7-4.5)
[2021-11-21 04:30] LABS: BUN/Creatinine Ratio 20 (6-26); Blood Urea Nitrogen 24 mg/dL (8-23); Calcium 8.5 mg/dL (8.6-10.3); Carbon Dioxide 24 mEq/L (23-29); Chloride 107 mEq/L (98-107); Glucose 107 mg/dL (70-105); Osmolality,Calculated 289 (280-300); Potassium 4.2 mEq/L (3.5-5.1); Sodium 137 mEq/L (136-145); eGFR For African Americans > 60 (> 60); eGFR For Non-African Americans 58 (> 60)
[2021-11-21] MEDS: Heparin 25,000UNIT/250ML 1/2NS 25,000 UNIT/250 ML IV.SOLN IVC SCH (09:14)
[2021-11-21] MEDS: Metoprolol XL (24 HR) Succ 25 MG TAB.ER.24H PO SCH (09:15)
[2021-11-21] MEDS: Insulin LISPRO 300 UNITS/3 ML VIAL SUBQ SCH ×4 (09:15→20:02)
[2021-11-21] MEDS: Aspirin Enteric Coated 81 MG Tablet PO SCH (09:15)
[2021-11-21] MEDS: Lactobacillus 1 EACH CAP.SPRINK PO SCH ×2 (09:15→20:00)
[2021-11-21] MEDS: predniSONE 10 MG TABLET PO SCH (09:15)
[2021-11-21] MEDS: allopurinoL 300 MG TABLET PO SCH ×2 (09:20→19:59)
[2021-11-21] MEDS: polyethylene glycoL 3350 17 GM POWD.PACK PO SCH (17:01)
[2021-11-21] MEDS: Gabapentin 300 MG CAPSULE PO SCH (20:01)
[2021-11-22] MEDS: CeFAZolin 2,000 MG/120 ML BAG IVPB SCH ×4 (00:22→23:23)
[2021-11-22 06:32] LABS: Hematocrit 26.9 % (37.5-50.1); Hemoglobin 8.6 g/dL (12.9-16.9); Mean Corpuscular Hemoglobin 30.9 pg (28.0-33.3); Mean Corpuscular Volume 96.8 fL (83.0-100.0); Mean Platelet Volume 9.9 fL (9.4-12.4); Platelet Count 230 K/mcL (140-400); Red Blood Count 2.78 M/mcL (4.19-5.50); Red Cell Distribution Width 17.9 % (11.5-14.5)
[2021-11-22] MEDS: Heparin 25,000UNIT/250ML 1/2NS 25,000 UNIT/250 ML IV.SOLN IVC SCH (06:54)
[2021-11-22 07:26] LABS: BUN/Creatinine Ratio 19 (6-26); Blood Urea Nitrogen 21 mg/dL (8-23); Calcium 8.5 mg/dL (8.6-10.3); Carbon Dioxide 24 mEq/L (23-29); Chloride 107 mEq/L (98-107); Glucose 95 mg/dL (70-105); Osmolality,Calculated 289 (280-300); Phosphorous 2.3 mg/dL (2.7-4.5); Potassium 4.1 mEq/L (3.5-5.1); Sodium 138 mEq/L (136-145); eGFR For African Americans > 60 (> 60); eGFR For Non-African Americans > 60 (> 60)
[2021-11-22] MEDS: Insulin LISPRO 300 UNITS/3 ML VIAL SUBQ SCH ×4 (09:08→20:36)
[2021-11-22] MEDS: Lactobacillus 1 EACH CAP.SPRINK PO SCH ×2 (09:21→20:38)
[2021-11-22] MEDS: predniSONE 10 MG TABLET PO SCH (09:21)
[2021-11-22] MEDS: Metoprolol XL (24 HR) Succ 25 MG TAB.ER.24H PO SCH (09:21)
[2021-11-22] MEDS: polyethylene glycoL 3350 17 GM POWD.PACK PO SCH (09:21)
[2021-11-22] MEDS: Aspirin Enteric Coated 81 MG Tablet PO SCH (09:21)
[2021-11-22] MEDS: *HR* Heparin 5,000 UNIT/ML VIAL IVP PRN (09:22)
[2021-11-22] MEDS: allopurinoL 300 MG TABLET PO SCH ×2 (09:22→20:38)
[2021-11-22] MEDS ORDERED: Morphine Sulfate 2 MG/ML SYRINGE IVP ONE (12:09)
[2021-11-22] MEDS: Gabapentin 300 MG CAPSULE PO SCH (20:38)
[2021-11-22] MEDS: Simethicone 80 MG TAB.CHEW PO PRN (20:39)
[2021-11-23 06:02] LABS: Hematocrit 27.4 % (37.5-50.1); Hemoglobin 8.5 g/dL (12.9-16.9); Mean Corpuscular Hemoglobin 29.9 pg (28.0-33.3); Mean Corpuscular Volume 96.5 fL (83.0-100.0); Mean Platelet Volume 9.7 fL (9.4-12.4); Platelet Count 247 K/mcL (140-400); Red Blood Count 2.84 M/mcL (4.19-5.50); Red Cell Distribution Width 18.5 % (11.5-14.5)
[2021-11-23 06:22] LABS: BUN/Creatinine Ratio 17 (6-26); Blood Urea Nitrogen 19 mg/dL (8-23); Calcium 8.5 mg/dL (8.6-10.3); Carbon Dioxide 25 mEq/L (23-29); Chloride 106 mEq/L (98-107); Glucose 92 mg/dL (70-105); Osmolality,Calculated 286 (280-300); Potassium 4.6 mEq/L (3.5-5.1); Sodium 137 mEq/L (136-145); eGFR For African Americans > 60 (> 60); eGFR For Non-African Americans > 60 (> 60)
[2021-11-23] MEDS: Heparin 25,000UNIT/250ML 1/2NS 25,000 UNIT/250 ML IV.SOLN IVC SCH ×2 (07:21→11:16)
[2021-11-23] MEDS: CeFAZolin 2,000 MG/120 ML BAG IVPB SCH ×2 (08:55→15:31)
[2021-11-23] MEDS: Metoprolol XL (24 HR) Succ 25 MG TAB.ER.24H PO SCH (08:56)
[2021-11-23] MEDS: Aspirin Enteric Coated 81 MG Tablet PO SCH (08:57)
[2021-11-23] MEDS: Lactobacillus 1 EACH CAP.SPRINK PO SCH ×2 (08:57→20:47)
[2021-11-23] MEDS: predniSONE 10 MG TABLET PO SCH (08:57)
[2021-11-23] MEDS: allopurinoL 300 MG TABLET PO SCH ×2 (09:00→20:48)
[2021-11-23] MEDS: polyethylene glycoL 3350 17 GM POWD.PACK PO SCH (09:00)
[2021-11-23] MEDS: Insulin LISPRO 300 UNITS/3 ML VIAL SUBQ SCH ×3 (09:01→23:29)
[2021-11-23] MEDS ORDERED: *HR* Heparin 10,000 UNIT/10 ML VIAL ONE ×2 (10:45→12:07)
[2021-11-23] MEDS ORDERED: Heparin 1,000 UNITS/500 mL 500 ML ONE (10:45)
[2021-11-23] MEDS ORDERED: 0.9 % Sodium Chloride 2,000 ML ONE (10:45)
[2021-11-23] MEDS ORDERED: ISOVUE-370 200 ML INFUS..BTL ONE (10:45)
[2021-11-23] MEDS ORDERED: Nitroglycerin 1,000 MCG/5 ML VIAL IV ONE (10:46)
[2021-11-23] MEDS ORDERED: *HR* Midazolam HCl 2 MG/2 ML VIAL ONE (11:25)
[2021-11-23] MEDS ORDERED: *HR* FentaNYL (PF) 100 MCG/2 ML VIAL ONE (11:25)
[2021-11-23] MEDS ORDERED: *HR* Nitroprusside 50 MG VIAL IVC ONE (12:06)
[2021-11-23] MEDS ORDERED: Tirofiban 12.5 MG/250ML 12.5 MG/250 ML BAG ONE (12:07)
[2021-11-23] MEDS ORDERED: D5% in Water 250 ML ONE (12:07)
[2021-11-23] MEDS: Gabapentin 300 MG CAPSULE PO SCH (20:47)
[2021-11-24] MEDS: CeFAZolin 2,000 MG/120 ML BAG IVPB SCH ×4 (01:55→23:09)
[2021-11-24 03:13] LABS: Hematocrit 27.5 % (37.5-50.1); Hemoglobin 8.4 g/dL (12.9-16.9); Mean Corpuscular HGB Conc 30.5 g/dL (31.6-35.5); Mean Corpuscular Hemoglobin 29.8 pg (28.0-33.3); Mean Corpuscular Volume 97.5 fL (83.0-100.0); Platelet Count 249 K/mcL (140-400); Red Blood Count 2.82 M/mcL (4.19-5.50); Red Cell Distribution Width 18.4 % (11.5-14.5); White Blood Count 9.1 K/mcL (4.3-11.1)
[2021-11-24 03:51] LABS: BUN/Creatinine Ratio 19 (6-26); Blood Urea Nitrogen 19 mg/dL (8-23); Calcium 8.6 mg/dL (8.6-10.3); Carbon Dioxide 23 mEq/L (23-29); Chloride 105 mEq/L (98-107); Glucose 96 mg/dL (70-105); Osmolality,Calculated 284 (280-300); Potassium 4.8 mEq/L (3.5-5.1); Sodium 136 mEq/L (136-145); eGFR For African Americans > 60 (> 60); eGFR For Non-African Americans > 60 (> 60)
[2021-11-24] MEDS: allopurinoL 300 MG TABLET PO SCH ×2 (08:02→20:28)
[2021-11-24] MEDS: Insulin LISPRO 300 UNITS/3 ML VIAL SUBQ SCH ×5 (08:41→20:14)
[2021-11-24] MEDS: Aspirin Enteric Coated 81 MG Tablet PO SCH (08:42)
[2021-11-24] MEDS: Lactobacillus 1 EACH CAP.SPRINK PO SCH ×2 (08:43→20:28)
[2021-11-24] MEDS: Metoprolol XL (24 HR) Succ 25 MG TAB.ER.24H PO SCH (08:43)
[2021-11-24] MEDS: predniSONE 10 MG TABLET PO SCH (08:43)
[2021-11-24] MEDS: polyethylene glycoL 3350 17 GM POWD.PACK PO SCH (08:44)
[2021-11-24] MEDS: lisinopriL 5 MG TABLET PO SCH (11:49)
[2021-11-24 14:45] LABS: INR 1.4; Prothrombin Time 15.6 Seconds (9.4-12.1)
[2021-11-24] MEDS: Heparin 25,000UNIT/250ML 1/2NS 25,000 UNIT/250 ML IV.SOLN IVC SCH ×2 (15:13→15:14)
[2021-11-24] MEDS ORDERED: *HR* Warfarin 2.5 MG TABLET PO ONE (18:00)
[2021-11-24] MEDS ORDERED: Warfarin perPT PO PRN (18:00)
[2021-11-24] MEDS: Gabapentin 300 MG CAPSULE PO SCH (20:28)
[2021-11-25] MEDS: Heparin 25,000UNIT/250ML 1/2NS 25,000 UNIT/250 ML IV.SOLN IVC SCH ×2 (04:49→11:02)
[2021-11-25 05:13] LABS: Hematocrit 28.7 % (37.5-50.1); Mean Corpuscular HGB Conc 31.4 g/dL (31.6-35.5); Mean Corpuscular Hemoglobin 30.2 pg (28.0-33.3); Mean Corpuscular Volume 96.3 fL (83.0-100.0); Mean Platelet Volume 9.8 fL (9.4-12.4); Platelet Count 239 K/mcL (140-400); Red Blood Count 2.98 M/mcL (4.19-5.50); Red Cell Distribution Width 18.6 % (11.5-14.5)
[2021-11-25 05:25] LABS: INR 1.3; Prothrombin Time 14.8 Seconds (9.4-12.1)
[2021-11-25 05:59] LABS: BUN/Creatinine Ratio 17 (6-26); Blood Urea Nitrogen 18 mg/dL (8-23); Calcium 8.9 mg/dL (8.6-10.3); Carbon Dioxide 27 mEq/L (23-29); Chloride 105 mEq/L (98-107); Glucose 101 mg/dL (70-105); Osmolality,Calculated 288 (280-300); Potassium 4.3 mEq/L (3.5-5.1); Sodium 138 mEq/L (136-145); eGFR For African Americans > 60 (> 60); eGFR For Non-African Americans > 60 (> 60)
[2021-11-25] MEDS: Insulin LISPRO 300 UNITS/3 ML VIAL SUBQ SCH ×4 (07:31→19:59)
[2021-11-25] MEDS: Lactobacillus 1 EACH CAP.SPRINK PO SCH ×2 (07:45→19:59)
[2021-11-25] MEDS: Aspirin Enteric Coated 81 MG Tablet PO SCH (07:45)
[2021-11-25] MEDS: Metoprolol XL (24 HR) Succ 25 MG TAB.ER.24H PO SCH (07:45)
[2021-11-25] MEDS: predniSONE 10 MG TABLET PO SCH (07:46)
[2021-11-25] MEDS: lisinopriL 5 MG TABLET PO SCH (07:46)
[2021-11-25] MEDS: polyethylene glycoL 3350 17 GM POWD.PACK PO SCH (07:46)
[2021-11-25] MEDS: CeFAZolin 2,000 MG/120 ML BAG IVPB SCH ×2 (07:49→17:06)
[2021-11-25] MEDS: allopurinoL 300 MG TABLET PO SCH ×2 (07:55→19:59)
[2021-11-25] MEDS: Sennosides/Docusate Sodium TABLET PO SCH ×2 (17:10→19:59)
[2021-11-25] MEDS ORDERED: *HR* Warfarin 5 MG TABLET PO ONE (18:00)
[2021-11-25] MEDS: Gabapentin 300 MG CAPSULE PO SCH (19:59)
[2021-11-26] MEDS: CeFAZolin 2,000 MG/120 ML BAG IVPB SCH ×4 (00:01→23:25)
[2021-11-26 02:00] LABS: Hematocrit 30.3 % (37.5-50.1); Hemoglobin 9.3 g/dL (12.9-16.9); Mean Corpuscular HGB Conc 30.7 g/dL (31.6-35.5); Mean Corpuscular Hemoglobin 30.3 pg (28.0-33.3); Mean Corpuscular Volume 98.7 fL (83.0-100.0); Mean Platelet Volume 9.5 fL (9.4-12.4); Platelet Count 261 K/mcL (140-400); Red Blood Count 3.07 M/mcL (4.19-5.50); Red Cell Distribution Width 18.6 % (11.5-14.5); White Blood Count 9.4 K/mcL (4.3-11.1)
[2021-11-26 02:14] LABS: INR 1.6; Prothrombin Time 17.4 Seconds (9.4-12.1)
[2021-11-26 02:23] LABS: BUN/Creatinine Ratio 15 (6-26); Blood Urea Nitrogen 17 mg/dL (8-23); Carbon Dioxide 28 mEq/L (23-29); Chloride 104 mEq/L (98-107); Glucose 86 mg/dL (70-105); Osmolality,Calculated 291 (280-300); Potassium 4.2 mEq/L (3.5-5.1); Sodium 140 mEq/L (136-145); eGFR For African Americans > 60 (> 60); eGFR For Non-African Americans > 60 (> 60)
[2021-11-26] MEDS: allopurinoL 300 MG TABLET PO SCH ×2 (07:17→21:08)
[2021-11-26] MEDS: predniSONE 10 MG TABLET PO SCH (08:21)
[2021-11-26] MEDS: Lactobacillus 1 EACH CAP.SPRINK PO SCH ×2 (08:21→21:06)
[2021-11-26] MEDS: Aspirin Enteric Coated 81 MG Tablet PO SCH (08:22)
[2021-11-26] MEDS: Sennosides/Docusate Sodium TABLET PO SCH ×2 (08:22→21:06)
[2021-11-26] MEDS: lisinopriL 5 MG TABLET PO SCH (08:22)
[2021-11-26] MEDS: Insulin LISPRO 300 UNITS/3 ML VIAL SUBQ SCH ×4 (08:22→20:59)
[2021-11-26] MEDS: Metoprolol XL (24 HR) Succ 25 MG TAB.ER.24H PO SCH (08:23)
[2021-11-26] MEDS: polyethylene glycoL 3350 17 GM POWD.PACK PO SCH (08:23)
[2021-11-26] MEDS: Simethicone 80 MG TAB.CHEW PO PRN (16:08)
[2021-11-26] MEDS ORDERED: *HR* Warfarin 5 MG TABLET PO ONE (18:00)
[2021-11-26] MEDS: Gabapentin 300 MG CAPSULE PO SCH (21:06)
[2021-11-27 01:13] LABS: Hematocrit 29.1 % (37.5-50.1); Hemoglobin 9.3 g/dL (12.9-16.9); Mean Corpuscular Hemoglobin 30.9 pg (28.0-33.3); Mean Corpuscular Volume 96.7 fL (83.0-100.0); Mean Platelet Volume 9.5 fL (9.4-12.4); Platelet Count 259 K/mcL (140-400); Red Blood Count 3.01 M/mcL (4.19-5.50); Red Cell Distribution Width 18.3 % (11.5-14.5); White Blood Count 10.7 K/mcL (4.3-11.1)
[2021-11-27 01:24] LABS: INR 2.3; Prothrombin Time 25.8 Seconds (9.4-12.1)
[2021-11-27 01:31] LABS: BUN/Creatinine Ratio 16 (6-26); Blood Urea Nitrogen 15 mg/dL (8-23); Calcium 8.7 mg/dL (8.6-10.3); Carbon Dioxide 27 mEq/L (23-29); Chloride 104 mEq/L (98-107); Glucose 116 mg/dL (70-105); Osmolality,Calculated 288 (280-300); Sodium 138 mEq/L (136-145); eGFR For African Americans > 60 (> 60); eGFR For Non-African Americans > 60 (> 60)
[2021-11-27] MEDS: Lactobacillus 1 EACH CAP.SPRINK PO SCH ×2 (09:55→21:15)
[2021-11-27] MEDS: lisinopriL 5 MG TABLET PO SCH (09:55)
[2021-11-27] MEDS: Sennosides/Docusate Sodium TABLET PO SCH ×2 (09:55→21:12)
[2021-11-27] MEDS: Aspirin Enteric Coated 81 MG Tablet PO SCH (09:55)
[2021-11-27] MEDS: Metoprolol XL (24 HR) Succ 25 MG TAB.ER.24H PO SCH (09:55)
[2021-11-27] MEDS: predniSONE 10 MG TABLET PO SCH (09:55)
[2021-11-27] MEDS: polyethylene glycoL 3350 17 GM POWD.PACK PO SCH (09:55)
[2021-11-27] MEDS: allopurinoL 300 MG TABLET PO SCH ×2 (09:56→21:19)
[2021-11-27] MEDS: Insulin LISPRO 300 UNITS/3 ML VIAL SUBQ SCH ×4 (09:59→21:15)
[2021-11-27] MEDS: CeFAZolin 2,000 MG/120 ML BAG IVPB SCH ×3 (09:59→23:35)
[2021-11-27] MEDS ORDERED: *HR* Warfarin 2.5 MG TABLET PO ONE (18:00)
[2021-11-27] MEDS: Gabapentin 300 MG CAPSULE PO SCH (21:15)
[2021-11-28 04:53] LABS: Basophils % 0.4 %; Eosinophils % 0.4 %; Hematocrit 29.6 % (37.5-50.1); Hemoglobin 9.1 g/dL (12.9-16.9); Immature Granulocytes % 1.6 % (0-4); Lymphocytes # 1.7 K/mcL (0.6-4.6); Lymphocytes % 17.5 %; Mean Corpuscular HGB Conc 30.7 g/dL (31.6-35.5); Mean Corpuscular Hemoglobin 30.4 pg (28.0-33.3); Mean Platelet Volume 9.2 fL (9.4-12.4); Monocytes # 0.7 K/mcL (0.0-1.3); Monocytes % 6.9 %; Platelet Count 252 K/mcL (140-400); Red Blood Count 2.99 M/mcL (4.19-5.50); Red Cell Distribution Width 18.2 % (11.5-14.5); Segmented Neutrophils % 73.2 %; White Blood Count 9.6 K/mcL (4.3-11.1)
[2021-11-28 05:01] LABS: INR 2.7; Prothrombin Time 29.8 Seconds (9.4-12.1)
[2021-11-28 05:15] LABS: BUN/Creatinine Ratio 15 (6-26); Blood Urea Nitrogen 14 mg/dL (8-23); Calcium 8.4 mg/dL (8.6-10.3); Carbon Dioxide 27 mEq/L (23-29); Chloride 105 mEq/L (98-107); Glucose 88 mg/dL (70-105); Osmolality,Calculated 286 (280-300); Potassium 3.9 mEq/L (3.5-5.1); Sodium 138 mEq/L (136-145); eGFR For African Americans > 60 (> 60); eGFR For Non-African Americans > 60 (> 60)
[2021-11-28] MEDS: polyethylene glycoL 3350 17 GM POWD.PACK PO SCH (09:51)
[2021-11-28] MEDS: Lactobacillus 1 EACH CAP.SPRINK PO SCH ×2 (09:51→20:16)
[2021-11-28] MEDS: Aspirin Enteric Coated 81 MG Tablet PO SCH (09:51)
[2021-11-28] MEDS: lisinopriL 5 MG TABLET PO SCH (09:51)
[2021-11-28] MEDS: Sennosides/Docusate Sodium TABLET PO SCH ×2 (09:51→20:16)
[2021-11-28] MEDS: predniSONE 10 MG TABLET PO SCH (09:51)
[2021-11-28] MEDS: Metoprolol XL (24 HR) Succ 25 MG TAB.ER.24H PO SCH (09:51)
[2021-11-28] MEDS: Insulin LISPRO 300 UNITS/3 ML VIAL SUBQ SCH ×4 (09:52→20:17)
[2021-11-28] MEDS: allopurinoL 300 MG TABLET PO SCH ×2 (09:52→20:17)
[2021-11-28] MEDS: Simethicone 80 MG TAB.CHEW PO PRN (09:56)
[2021-11-28] MEDS: CeFAZolin 2,000 MG/120 ML BAG IVPB SCH ×3 (10:04→23:04)
[2021-11-28] MEDS ORDERED: *HR* Warfarin 2.5 MG TABLET PO ONE (18:00)
[2021-11-28] MEDS: Gabapentin 300 MG CAPSULE PO SCH (20:16)
[2021-11-29 02:44] LABS: Basophils # 0.1 K/mcL (0.0-0.2); Basophils % 0.6 %; Eosinophils % 0.5 %; Hematocrit 30.4 % (37.5-50.1); Hemoglobin 9.3 g/dL (12.9-16.9); Immature Granulocytes % 1.5 % (0-4); Lymphocytes # 1.7 K/mcL (0.6-4.6); Lymphocytes % 19.3 %; Mean Corpuscular HGB Conc 30.6 g/dL (31.6-35.5); Mean Corpuscular Hemoglobin 30.3 pg (28.0-33.3); Monocytes # 0.6 K/mcL (0.0-1.3); Monocytes % 7.1 %; Neutrophils # 6.2 K/mcL (1.6-8.9); Platelet Count 233 K/mcL (140-400); Red Blood Count 3.07 M/mcL (4.19-5.50); Red Cell Distribution Width 18.4 % (11.5-14.5); White Blood Count 8.7 K/mcL (4.3-11.1)
[2021-11-29 03:07] LABS: BUN/Creatinine Ratio 15 (6-26); Blood Urea Nitrogen 14 mg/dL (8-23); Calcium 8.6 mg/dL (8.6-10.3); Carbon Dioxide 25 mEq/L (23-29); Chloride 108 mEq/L (98-107); Glucose 77 mg/dL (70-105); Osmolality,Calculated 291 (280-300); Potassium 3.8 mEq/L (3.5-5.1); Sodium 141 mEq/L (136-145); eGFR For African Americans > 60 (> 60); eGFR For Non-African Americans > 60 (> 60)
[2021-11-29 03:41] LABS: INR 2.4; Prothrombin Time 26.2 Seconds (9.4-12.1)
[2021-11-29] MEDS: Insulin LISPRO 300 UNITS/3 ML VIAL SUBQ SCH ×4 (08:01→20:42)
[2021-11-29] MEDS: CeFAZolin 2,000 MG/120 ML BAG IVPB SCH ×3 (08:44→23:37)
[2021-11-29] MEDS: Metoprolol XL (24 HR) Succ 25 MG TAB.ER.24H PO SCH (08:45)
[2021-11-29] MEDS: lisinopriL 5 MG TABLET PO SCH (08:45)
[2021-11-29] MEDS: Sennosides/Docusate Sodium TABLET PO SCH ×2 (08:45→20:42)
[2021-11-29] MEDS: Aspirin Enteric Coated 81 MG Tablet PO SCH (08:45)
[2021-11-29] MEDS: Lactobacillus 1 EACH CAP.SPRINK PO SCH ×2 (08:45→20:42)
[2021-11-29] MEDS: predniSONE 10 MG TABLET PO SCH (08:46)
[2021-11-29] MEDS: polyethylene glycoL 3350 17 GM POWD.PACK PO SCH (08:46)
[2021-11-29] MEDS: allopurinoL 300 MG TABLET PO SCH ×2 (08:47→20:42)
[2021-11-29] MEDS ORDERED: *HR* Warfarin 5 MG TABLET PO ONE (18:00)
[2021-11-29] MEDS: Gabapentin 300 MG CAPSULE PO SCH (20:42)
[2021-11-30] MEDS: Isosorbide MONOnitrate (24 HR) 30 MG TAB.ER.24H PO SCH (08:10)
[2021-11-30] MEDS: lisinopriL 5 MG TABLET PO SCH (08:10)
[2021-11-30] MEDS: Lactobacillus 1 EACH CAP.SPRINK PO SCH ×2 (08:10→21:46)
[2021-11-30] MEDS: Sennosides/Docusate Sodium TABLET PO SCH ×2 (08:11→21:46)
[2021-11-30] MEDS: Aspirin Enteric Coated 81 MG Tablet PO SCH (08:12)
[2021-11-30] MEDS: allopurinoL 300 MG TABLET PO SCH ×2 (08:12→21:46)
[2021-11-30] MEDS: predniSONE 10 MG TABLET PO SCH (08:13)
[2021-11-30] MEDS: Metoprolol XL (24 HR) Succ 25 MG TAB.ER.24H PO SCH (08:13)
[2021-11-30] MEDS: Insulin LISPRO 300 UNITS/3 ML VIAL SUBQ SCH ×4 (08:14→21:47)
[2021-11-30] MEDS: polyethylene glycoL 3350 17 GM POWD.PACK PO SCH (08:15)
[2021-11-30] MEDS: CeFAZolin 2,000 MG/120 ML BAG IVPB SCH ×2 (08:21→16:02)
[2021-11-30 09:25] LABS: Basophils % 0.4 %; Eosinophils # 0.1 K/mcL (0.0-0.6); Eosinophils % 0.6 %; Hemoglobin 10.1 g/dL (12.9-16.9); Immature Granulocytes % 1.4 % (0-4); Lymphocytes # 1.5 K/mcL (0.6-4.6); Lymphocytes % 16.6 %; Mean Corpuscular HGB Conc 30.6 g/dL (31.6-35.5); Mean Corpuscular Hemoglobin 30.1 pg (28.0-33.3); Mean Corpuscular Volume 98.5 fL (83.0-100.0); Mean Platelet Volume 8.9 fL (9.4-12.4); Monocytes # 0.6 K/mcL (0.0-1.3); Monocytes % 6.3 %; Neutrophils # 6.7 K/mcL (1.6-8.9); Platelet Count 233 K/mcL (140-400); Red Blood Count 3.35 M/mcL (4.19-5.50); Red Cell Distribution Width 18.3 % (11.5-14.5); Segmented Neutrophils % 74.7 %
[2021-11-30 09:45] LABS: BUN/Creatinine Ratio 13 (6-26); Blood Urea Nitrogen 12 mg/dL (8-23); Calcium 8.4 mg/dL (8.6-10.3); Carbon Dioxide 28 mEq/L (23-29); Chloride 107 mEq/L (98-107); Glucose 122 mg/dL (70-105); Osmolality,Calculated 295 (280-300); Potassium 3.4 mEq/L (3.5-5.1); Sodium 142 mEq/L (136-145); eGFR For African Americans > 60 (> 60); eGFR For Non-African Americans > 60 (> 60)
[2021-11-30] MEDS ORDERED: Saline Nasal Spray 44 ML BOTTLE NS PRN (10:49)
[2021-11-30 14:38] LABS: INR 2.8; Prothrombin Time 30.9 Seconds (9.4-12.1)
[2021-11-30] MEDS ORDERED: *HR* Warfarin 2.5 MG TABLET PO ONE (18:00)
[2021-11-30] MEDS: Gabapentin 300 MG CAPSULE PO SCH (21:46)
[2021-12-01] MEDS: CeFAZolin 2,000 MG/120 ML BAG IVPB SCH ×2 (00:48→08:59)
[2021-12-01 05:56] LABS: INR 2.5; Prothrombin Time 28.1 Seconds (9.4-12.1)
[2021-12-01] MEDS: Sennosides/Docusate Sodium TABLET PO SCH (07:10)
[2021-12-01] MEDS: Lactobacillus 1 EACH CAP.SPRINK PO SCH (07:11)
[2021-12-01] MEDS: Aspirin Enteric Coated 81 MG Tablet PO SCH (07:11)
[2021-12-01] MEDS: lisinopriL 5 MG TABLET PO SCH (07:11)
[2021-12-01] MEDS: Isosorbide MONOnitrate (24 HR) 30 MG TAB.ER.24H PO SCH (07:11)
[2021-12-01] MEDS: Metoprolol XL (24 HR) Succ 25 MG TAB.ER.24H PO SCH (07:11)
[2021-12-01] MEDS: predniSONE 10 MG TABLET PO SCH (07:12)
[2021-12-01] MEDS: polyethylene glycoL 3350 17 GM POWD.PACK PO SCH (07:12)
[2021-12-01] MEDS: Insulin LISPRO 300 UNITS/3 ML VIAL SUBQ SCH ×2 (07:12→13:31)
[2021-12-01] MEDS: allopurinoL 300 MG TABLET PO SCH (07:14)
[2021-12-01 07:17] VITALS: BP 113/73; PULSE 89; TEMP 98; O2SAT 94
[2021-12-01] MEDS ORDERED: *HR* Warfarin 5 MG TABLET PO ONE (18:00)
== END 2021-12-01 14:30 | disposition home health service (06) | DRG 853 ==
LOC: 4WAOSI 15:27 → EMEROOARM 15:27 → SUATTDRO 11-12 01:27 → 4WAOSI 11-12 02:16 → SUATTDRO 11-12 12:20 → 2NNU 11-14 13:29 → ICNU 11-14 15:17 → 2NNU 11-17 18:55 → 3BNU 11-24 15:02
PROVIDERS: ADMIT Family Medicine; ATTEND Internal Medicine

== ENCOUNTER 2021-12-29 12:13 | Inpatient (IN) ==
[2021-12-29] MEDS ORDERED: Isovue-370 500 ML BOTTLE IVP ONE (12:50)
[2021-12-29 13:02] LABS: Basophils # 0.1 K/mcL (0.0-0.2); Basophils % 0.4 %; Eosinophils # 0.1 K/mcL (0.0-0.6); Eosinophils % 0.4 %; Hematocrit 35.1 % (37.5-50.1); Hemoglobin 10.6 g/dL (12.9-16.9); Immature Granulocytes % 0.9 % (0-4); Lymphocytes # 1.6 K/mcL (0.6-4.6); Lymphocytes % 12.8 %; Mean Corpuscular HGB Conc 30.2 g/dL (31.6-35.5); Mean Corpuscular Hemoglobin 28.6 pg (28.0-33.3); Mean Corpuscular Volume 94.6 fL (83.0-100.0); Mean Platelet Volume 9.4 fL (9.4-12.4); Monocytes % 7.4 %; Platelet Count 296 K/mcL (140-400); Red Blood Count 3.71 M/mcL (4.19-5.50); Red Cell Distribution Width 15.5 % (11.5-14.5); Segmented Neutrophils % 78.1 %; White Blood Count 12.8 K/mcL (4.3-11.1)
[2021-12-29 13:41] LABS: Alanine Aminotransferase < 3 Units/L (7-52); Albumin 3.2 g/dL (3.5-5.7); Albumin/Globulin Ratio 1.1 (1.1-2.2); Alkaline Phosphatase 96 Units/L (34-104); Aspartate Amino Transferase 9 Units/L (13-39); BUN/Creatinine Ratio 30 (6-26); Bilirubin,Direct 0.1 mg/dL (0.0-0.2); Bilirubin,Indirect 0.4 mg/dL (0.0-1.0); Bilirubin,Total 0.5 mg/dL (0.3-1.0); Blood Urea Nitrogen 29 mg/dL (8-23); C-Reactive Protein 68 mg/L (Less than 10); Calcium 8.7 mg/dL (8.6-10.3); Carbon Dioxide 24 mEq/L (23-29); Chloride 101 mEq/L (98-107); Glucose 144 mg/dL (70-105); Osmolality,Calculated 294 (280-300); Potassium 3.8 mEq/L (3.5-5.1); Sodium 138 mEq/L (136-145); Total Protein 6.2 g/dL (6.4-8.9); Uric Acid 7.4 mg/dL (2.3-7.6); eGFR For African Americans > 60 (> 60); eGFR For Non-African Americans > 60 (> 60)
[2021-12-29] MEDS ORDERED: *HR* OxyCODONE Immed Rel 5 MG TABLET PO PRN (15:33)
[2021-12-29] MEDS ORDERED: Melatonin 3 MG TABLET PO PRN (15:33)
[2021-12-29] MEDS ORDERED: Acetaminophen 325 MG TABLET PO PRN (15:33)
[2021-12-29] MEDS ORDERED: *HR* HYDROcodone/Acet 5/325 mg TABLET PO PRN (15:33)
[2021-12-29] MEDS ORDERED: Naloxone 0.4 MG/ML INJ IVP PRN (15:33)
[2021-12-29] MEDS ORDERED: Ondansetron 4 MG/2 ML VIAL IVP PRN (15:33)
[2021-12-29] MEDS ORDERED: Vancomycin 1,750 MG in 0.9 % Sodium Chloride 250 ML IVPB SCH (16:00)
[2021-12-29] MEDS: 0.9 % Sodium Chloride 1,000 ML IVC SCH (18:21)
[2021-12-29] MEDS: Vancomycin 2,000 MG/520 ML IV.SOLN IVPB SCH (18:24)
[2021-12-29] MEDS: Ketorolac 30 MG/ML VIAL IVP SCH (18:24)
[2021-12-29] MEDS: Cefepime HCl 2,000 MG in 0.9 % Sodium Chloride 10 ML IVP SCH (18:24)
[2021-12-29] MEDS ORDERED: *HR* Dextrose 50 % in Water (Syg) 50 ML SYRINGE IVP PRN (19:44)
[2021-12-29] MEDS ORDERED: Dextrose 4 GM Chewable Tablets PO PRN ×2 (19:44)
[2021-12-29] MEDS ORDERED: D5% in Water 1,000 ML IVC PRN (19:44)
[2021-12-29] MEDS: Gabapentin 300 MG CAPSULE PO SCH (21:40)
[2021-12-30] MEDS: Insulin LISPRO 300 UNITS/3 ML VIAL SUBQ SCH ×4 (00:30→17:21)
[2021-12-30] MEDS: Ketorolac 30 MG/ML VIAL IVP SCH ×4 (00:35→17:20)
[2021-12-30] MEDS: Cefepime HCl 2,000 MG in 0.9 % Sodium Chloride 10 ML IVP SCH (05:48)
[2021-12-30 06:59] LABS: Basophils % 0.4 %; Eosinophils # 0.1 K/mcL (0.0-0.6); Hematocrit 25.5 % (37.5-50.1); Immature Granulocytes % 1.1 % (0-4); Lymphocytes # 2.5 K/mcL (0.6-4.6); Lymphocytes % 31.2 %; Mean Corpuscular HGB Conc 30.6 g/dL (31.6-35.5); Mean Corpuscular Hemoglobin 28.9 pg (28.0-33.3); Mean Corpuscular Volume 94.4 fL (83.0-100.0); Mean Platelet Volume 9.9 fL (9.4-12.4); Monocytes # 0.8 K/mcL (0.0-1.3); Monocytes % 9.5 %; Neutrophils # 4.5 K/mcL (1.6-8.9); Platelet Count 340 K/mcL (140-400); Red Cell Distribution Width 15.5 % (11.5-14.5); Segmented Neutrophils % 56.8 %
[2021-12-30 07:00] LABS: Hemoglobin 7.8 g/dL (12.9-16.9)
[2021-12-30 07:23] LABS: BUN/Creatinine Ratio 29 (6-26); Blood Urea Nitrogen 30 mg/dL (8-23); Calcium 8.4 mg/dL (8.6-10.3); Carbon Dioxide 28 mEq/L (23-29); Chloride 103 mEq/L (98-107); Glucose 79 mg/dL (70-105); Magnesium 1.2 mg/dL (1.6-2.6); Osmolality,Calculated 291 (280-300); Potassium 3.8 mEq/L (3.5-5.1); Sodium 138 mEq/L (136-145); eGFR For African Americans > 60 (> 60); eGFR For Non-African Americans > 60 (> 60)
[2021-12-30] MEDS: MetroNIDAZOLE 500 MG/100 ML 500 MG/100 ML BAG IVPB SCH ×3 (08:48→23:40)
[2021-12-30] MEDS ORDERED: Gadolinium Contrast Agent (WT Based) IV PRN (09:46)
[2021-12-30] MEDS: 0.9 % Sodium Chloride 1,000 ML IVC SCH (11:57)
[2021-12-30] MEDS: Cefepime HCl 2,000 MG in 0.9 % Sodium Chloride Mini Bag 100 ML IVPB SCH ×2 (15:54→23:39)
[2021-12-30] MEDS: Vancomycin 2,000 MG/520 ML IV.SOLN IVPB SCH (17:21)
[2021-12-30] MEDS ORDERED: Nitroglycerin 0.4 MG TAB.SUBL SL PRN (18:43)
[2021-12-30] MEDS: Gabapentin 300 MG CAPSULE PO SCH (21:46)
[2021-12-31] MEDS: Insulin LISPRO 300 UNITS/3 ML VIAL SUBQ SCH ×4 (00:20→18:58)
[2021-12-31] MEDS: 0.9 % Sodium Chloride 1,000 ML IVC SCH (06:51)
[2021-12-31] MEDS: *HR* Enoxaparin 40 MG/0.4 ML SYRINGE SQ SCH (06:51)
[2021-12-31 08:42] LABS: Basophils % 0.4 %; Eosinophils # 0.1 K/mcL (0.0-0.6); Eosinophils % 0.8 %; Hematocrit 32.2 % (37.5-50.1); Immature Granulocytes % 0.7 % (0-4); Lymphocytes # 1.8 K/mcL (0.6-4.6); Lymphocytes % 23.4 %; Mean Corpuscular HGB Conc 30.7 g/dL (31.6-35.5); Mean Corpuscular Hemoglobin 29.1 pg (28.0-33.3); Mean Corpuscular Volume 94.7 fL (83.0-100.0); Mean Platelet Volume 9.9 fL (9.4-12.4); Monocytes # 0.6 K/mcL (0.0-1.3); Monocytes % 7.3 %; Neutrophils # 5.1 K/mcL (1.6-8.9); Platelet Count 277 K/mcL (140-400); Red Cell Distribution Width 15.5 % (11.5-14.5); Segmented Neutrophils % 67.4 %; White Blood Count 7.6 K/mcL (4.3-11.1)
[2021-12-31 08:47] LABS: Hemoglobin 9.9 g/dL (12.9-16.9)
[2021-12-31 09:31] LABS: % Iron Saturation 14 % (20-55); Ferritin 199 ng/mL (20-250); Iron 35 mcg/dL (65-175); Transferrin 178 mg/dL (203-362)
[2021-12-31 09:55] LABS: BUN/Creatinine Ratio 27 (6-26); Blood Urea Nitrogen 29 mg/dL (8-23); Calcium 8.4 mg/dL (8.6-10.3); Carbon Dioxide 27 mEq/L (23-29); Chloride 108 mEq/L (98-107); Glucose 99 mg/dL (70-105); Osmolality,Calculated 298 (280-300); Potassium 3.8 mEq/L (3.5-5.1); Sodium 141 mEq/L (136-145); eGFR For African Americans > 60 (> 60); eGFR For Non-African Americans > 60 (> 60)
[2021-12-31] MEDS: Metoprolol XL (24 HR) Succ 25 MG TAB.ER.24H PO SCH (10:00)
[2021-12-31 10:01] LABS: Estimated Average Glucose 111 mg/dl; Hemoglobin A1C 5.5 %
[2021-12-31] MEDS: allopurinoL 300 MG TABLET PO PRN (10:01)
[2021-12-31] MEDS: MetroNIDAZOLE 500 MG/100 ML 500 MG/100 ML BAG IVPB SCH (10:02)
[2021-12-31] MEDS: Cefepime HCl 2,000 MG in 0.9 % Sodium Chloride Mini Bag 100 ML IVPB SCH (10:03)
[2021-12-31 10:34] LABS: C-Reactive Protein 22 mg/L (Less than 10)
[2021-12-31 11:42] LABS: Folate 7.2 ng/mL (3.0-16.0)
[2021-12-31] MEDS ORDERED: Cyanocobalamin (B-12) 1,000 MCG/ML VIAL SQ ONE (18:10)
[2021-12-31] MEDS: CeFAZolin 2,000 MG/120 ML BAG IVPB SCH (18:42)
[2021-12-31] MEDS: Gabapentin 300 MG CAPSULE PO SCH (22:08)
[2022-01-01] MEDS: CeFAZolin 2,000 MG/120 ML BAG IVPB SCH ×3 (00:31→16:54)
[2022-01-01] MEDS: Insulin LISPRO 300 UNITS/3 ML VIAL SUBQ SCH ×6 (00:32→19:52)
[2022-01-01] MEDS: *HR* Enoxaparin 40 MG/0.4 ML SYRINGE SQ SCH (05:59)
[2022-01-01 06:29] LABS: Basophils % 0.5 %; Eosinophils # 0.1 K/mcL (0.0-0.6); Eosinophils % 0.9 %; Hematocrit 32.7 % (37.5-50.1); Lymphocytes # 1.9 K/mcL (0.6-4.6); Lymphocytes % 22.8 %; Mean Corpuscular HGB Conc 30.6 g/dL (31.6-35.5); Mean Corpuscular Volume 94.8 fL (83.0-100.0); Mean Platelet Volume 9.8 fL (9.4-12.4); Monocytes # 0.7 K/mcL (0.0-1.3); Monocytes % 8.7 %; Neutrophils # 5.4 K/mcL (1.6-8.9); Platelet Count 268 K/mcL (140-400); Red Blood Count 3.45 M/mcL (4.19-5.50); Red Cell Distribution Width 15.6 % (11.5-14.5); Segmented Neutrophils % 66.1 %; White Blood Count 8.2 K/mcL (4.3-11.1)
[2022-01-01 07:15] LABS: BUN/Creatinine Ratio 23 (6-26); Blood Urea Nitrogen 23 mg/dL (8-23); Calcium 8.8 mg/dL (8.6-10.3); Carbon Dioxide 24 mEq/L (23-29); Chloride 108 mEq/L (98-107); Glucose 85 mg/dL (70-105); Osmolality,Calculated 293 (280-300); Potassium 3.8 mEq/L (3.5-5.1); Sodium 140 mEq/L (136-145); eGFR For African Americans > 60 (> 60); eGFR For Non-African Americans > 60 (> 60)
[2022-01-01] MEDS: Metoprolol XL (24 HR) Succ 25 MG TAB.ER.24H PO SCH (09:00)
[2022-01-01] MEDS: allopurinoL 300 MG TABLET PO PRN (09:00)
[2022-01-01] MEDS: Vitamin B Complex/Vit C/Vit E 1 EACH TABLET PO SCH (09:00)
[2022-01-01 09:45] LABS: C-Reactive Protein 12 mg/L (Less than 10)
[2022-01-01] MEDS: Gabapentin 300 MG CAPSULE PO SCH (19:52)
[2022-01-02] MEDS: CeFAZolin 2,000 MG/120 ML BAG IVPB SCH ×3 (01:03→16:56)
[2022-01-02] MEDS: Insulin LISPRO 300 UNITS/3 ML VIAL SUBQ SCH ×4 (07:09→19:44)
[2022-01-02] MEDS: Vitamin B Complex/Vit C/Vit E 1 EACH TABLET PO SCH (07:54)
[2022-01-02] MEDS: *HR* Enoxaparin 40 MG/0.4 ML SYRINGE SQ SCH (07:54)
[2022-01-02 08:16] LABS: Basophils % 0.5 %; Eosinophils # 0.1 K/mcL (0.0-0.6); Eosinophils % 1.1 %; Hematocrit 33.8 % (37.5-50.1); Hemoglobin 10.3 g/dL (12.9-16.9); Immature Granulocytes % 0.8 % (0-4); Lymphocytes # 2.2 K/mcL (0.6-4.6); Lymphocytes % 26.1 %; Mean Corpuscular HGB Conc 30.5 g/dL (31.6-35.5); Mean Corpuscular Hemoglobin 28.9 pg (28.0-33.3); Mean Corpuscular Volume 94.9 fL (83.0-100.0); Mean Platelet Volume 9.6 fL (9.4-12.4); Monocytes # 0.6 K/mcL (0.0-1.3); Monocytes % 7.7 %; Neutrophils # 5.3 K/mcL (1.6-8.9); Platelet Count 241 K/mcL (140-400); Red Blood Count 3.56 M/mcL (4.19-5.50); Red Cell Distribution Width 15.5 % (11.5-14.5); Segmented Neutrophils % 63.8 %; White Blood Count 8.4 K/mcL (4.3-11.1)
[2022-01-02 08:35] LABS: BUN/Creatinine Ratio 21 (6-26); Blood Urea Nitrogen 20 mg/dL (8-23); Calcium 8.8 mg/dL (8.6-10.3); Carbon Dioxide 26 mEq/L (23-29); Chloride 109 mEq/L (98-107); Glucose 100 mg/dL (70-105); Magnesium 1.6 mg/dL (1.6-2.6); Osmolality,Calculated 293 (280-300); Potassium 3.9 mEq/L (3.5-5.1); Sodium 140 mEq/L (136-145); eGFR For African Americans > 60 (> 60); eGFR For Non-African Americans > 60 (> 60)
[2022-01-02] MEDS: Metoprolol XL (24 HR) Succ 25 MG TAB.ER.24H PO SCH ×2 (12:32→13:38)
[2022-01-02] MEDS: Gabapentin 300 MG CAPSULE PO SCH (19:44)
[2022-01-03] MEDS: CeFAZolin 2,000 MG/120 ML BAG IVPB SCH ×3 (00:51→19:44)
[2022-01-03 04:52] LABS: Basophils % 0.3 %; Eosinophils # 0.1 K/mcL (0.0-0.6); Eosinophils % 1.4 %; Hematocrit 34.8 % (37.5-50.1); Hemoglobin 10.5 g/dL (12.9-16.9); Immature Granulocytes % 0.8 % (0-4); Lymphocytes # 2.3 K/mcL (0.6-4.6); Lymphocytes % 27.1 %; Mean Corpuscular HGB Conc 30.2 g/dL (31.6-35.5); Mean Corpuscular Hemoglobin 28.5 pg (28.0-33.3); Mean Corpuscular Volume 94.6 fL (83.0-100.0); Mean Platelet Volume 9.3 fL (9.4-12.4); Monocytes # 0.7 K/mcL (0.0-1.3); Monocytes % 7.5 %; Neutrophils # 5.4 K/mcL (1.6-8.9); Platelet Count 231 K/mcL (140-400); Red Blood Count 3.68 M/mcL (4.19-5.50); Red Cell Distribution Width 15.7 % (11.5-14.5); Segmented Neutrophils % 62.9 %; White Blood Count 8.6 K/mcL (4.3-11.1)
[2022-01-03 05:20] LABS: BUN/Creatinine Ratio 20 (6-26); Blood Urea Nitrogen 18 mg/dL (8-23); Carbon Dioxide 25 mEq/L (23-29); Chloride 108 mEq/L (98-107); Glucose 96 mg/dL (70-105); Osmolality,Calculated 294 (280-300); Sodium 141 mEq/L (136-145); eGFR For African Americans > 60 (> 60); eGFR For Non-African Americans > 60 (> 60)
[2022-01-03] MEDS: Insulin LISPRO 300 UNITS/3 ML VIAL SUBQ SCH ×4 (08:10→19:51)
[2022-01-03] MEDS: Metoprolol XL (24 HR) Succ 25 MG TAB.ER.24H PO SCH (08:20)
[2022-01-03] MEDS: Vitamin B Complex/Vit C/Vit E 1 EACH TABLET PO SCH (08:20)
[2022-01-03] MEDS: *HR* Enoxaparin 40 MG/0.4 ML SYRINGE SQ SCH (08:20)
[2022-01-03] MEDS ORDERED: Bumetanide 1 MG TABLET PO SCH (15:30)
[2022-01-03] MEDS: MetroNIDAZOLE 500 MG/100 ML 500 MG/100 ML BAG IVPB SCH (17:57)
[2022-01-03] MEDS: levoFLOXacin 750 MG/150 ML 750 MG/150 ML BAG IVPB SCH (17:58)
[2022-01-03] MEDS: Bumetanide 1 MG TABLET PO SCH (19:41)
[2022-01-03] MEDS: Lactobacillus 1 EACH CAP.SPRINK PO SCH (19:51)
[2022-01-03] MEDS: Gabapentin 300 MG CAPSULE PO SCH (19:51)
[2022-01-04] MEDS: MetroNIDAZOLE 500 MG/100 ML 500 MG/100 ML BAG IVPB SCH (00:46)
[2022-01-04] MEDS: CeFAZolin 2,000 MG/120 ML BAG IVPB SCH ×3 (00:46→17:30)
[2022-01-04 04:32] LABS: Basophils % 0.5 %; Eosinophils # 0.1 K/mcL (0.0-0.6); Eosinophils % 1.3 %; Hematocrit 34.1 % (37.5-50.1); Hemoglobin 10.4 g/dL (12.9-16.9); Immature Granulocytes % 0.8 % (0-4); Lymphocytes # 1.9 K/mcL (0.6-4.6); Lymphocytes % 22.1 %; Mean Corpuscular HGB Conc 30.5 g/dL (31.6-35.5); Mean Corpuscular Hemoglobin 28.9 pg (28.0-33.3); Mean Corpuscular Volume 94.7 fL (83.0-100.0); Mean Platelet Volume 9.8 fL (9.4-12.4); Monocytes # 0.6 K/mcL (0.0-1.3); Monocytes % 7.5 %; Neutrophils # 5.7 K/mcL (1.6-8.9); Platelet Count 240 K/mcL (140-400); Red Cell Distribution Width 15.4 % (11.5-14.5); Segmented Neutrophils % 67.8 %; White Blood Count 8.4 K/mcL (4.3-11.1)
[2022-01-04 05:31] LABS: BUN/Creatinine Ratio 20 (6-26); Blood Urea Nitrogen 17 mg/dL (8-23); Calcium 8.9 mg/dL (8.6-10.3); Carbon Dioxide 24 mEq/L (23-29); Chloride 109 mEq/L (98-107); Glucose 95 mg/dL (70-105); Magnesium 1.6 mg/dL (1.6-2.6); Osmolality,Calculated 293 (280-300); Sodium 141 mEq/L (136-145); eGFR For African Americans > 60 (> 60); eGFR For Non-African Americans > 60 (> 60)
[2022-01-04] MEDS: *HR* Enoxaparin 40 MG/0.4 ML SYRINGE SQ SCH (06:24)
[2022-01-04] MEDS: Insulin LISPRO 300 UNITS/3 ML VIAL SUBQ SCH ×4 (08:01→22:03)
[2022-01-04] MEDS: Vitamin B Complex/Vit C/Vit E 1 EACH TABLET PO SCH (08:17)
[2022-01-04] MEDS: Lactobacillus 1 EACH CAP.SPRINK PO SCH ×2 (08:17→22:02)
[2022-01-04] MEDS: Bumetanide 1 MG TABLET PO SCH (08:17)
[2022-01-04] MEDS: Metoprolol XL (24 HR) Succ 25 MG TAB.ER.24H PO SCH (08:18)
[2022-01-04] MEDS: levoFLOXacin 750 MG/150 ML 750 MG/150 ML BAG IVPB SCH (14:57)
[2022-01-04] MEDS: Vancomycin 2,000 MG/520 ML IV.SOLN IVPB SCH (18:05)
[2022-01-04] MEDS: Gabapentin 300 MG CAPSULE PO SCH (22:02)
[2022-01-05] MEDS: CeFAZolin 2,000 MG/120 ML BAG IVPB SCH (02:30)
[2022-01-05 06:27] LABS: BUN/Creatinine Ratio 17 (6-26); Blood Urea Nitrogen 17 mg/dL (8-23); Calcium 8.8 mg/dL (8.6-10.3); Carbon Dioxide 24 mEq/L (23-29); Chloride 109 mEq/L (98-107); Glucose 91 mg/dL (70-105); Magnesium 1.5 mg/dL (1.6-2.6); Osmolality,Calculated 295 (280-300); Sodium 142 mEq/L (136-145); eGFR For African Americans > 60 (> 60); eGFR For Non-African Americans > 60 (> 60)
[2022-01-05 06:41] LABS: Basophils % 0.5 %; Eosinophils # 0.1 K/mcL (0.0-0.6); Eosinophils % 1.3 %; Hematocrit 34.5 % (37.5-50.1); Immature Granulocytes % 0.9 % (0-4); Lymphocytes % 24.4 %; Mean Corpuscular HGB Conc 29.9 g/dL (31.6-35.5); Mean Corpuscular Hemoglobin 28.5 pg (28.0-33.3); Mean Corpuscular Volume 95.3 fL (83.0-100.0); Mean Platelet Volume 9.9 fL (9.4-12.4); Monocytes # 0.7 K/mcL (0.0-1.3); Monocytes % 8.5 %; Neutrophils # 5.3 K/mcL (1.6-8.9); Platelet Count 226 K/mcL (140-400); Red Blood Count 3.62 M/mcL (4.19-5.50); Red Cell Distribution Width 15.9 % (11.5-14.5); Segmented Neutrophils % 64.4 %; White Blood Count 8.2 K/mcL (4.3-11.1)
[2022-01-05 06:44] LABS: Hemoglobin 10.3 g/dL (12.9-16.9)
[2022-01-05] MEDS: Metoprolol XL (24 HR) Succ 25 MG TAB.ER.24H PO SCH (07:41)
[2022-01-05] MEDS: Vitamin B Complex/Vit C/Vit E 1 EACH TABLET PO SCH (07:42)
[2022-01-05] MEDS: Lactobacillus 1 EACH CAP.SPRINK PO SCH ×2 (07:42→20:14)
[2022-01-05] MEDS: *HR* Enoxaparin 40 MG/0.4 ML SYRINGE SQ SCH (07:42)
[2022-01-05] MEDS: Bumetanide 1 MG TABLET PO SCH (07:42)
[2022-01-05] MEDS: Insulin LISPRO 300 UNITS/3 ML VIAL SUBQ SCH ×4 (07:44→20:14)
[2022-01-05] MEDS: Vancomycin 2,000 MG/520 ML IV.SOLN IVPB SCH (18:24)
[2022-01-05] MEDS: Gabapentin 300 MG CAPSULE PO SCH (20:14)
[2022-01-06] MEDS: Metoprolol XL (24 HR) Succ 25 MG TAB.ER.24H PO SCH (10:10)
[2022-01-06] MEDS: Lactobacillus 1 EACH CAP.SPRINK PO SCH ×2 (10:10→20:34)
[2022-01-06] MEDS: *HR* Enoxaparin 40 MG/0.4 ML SYRINGE SQ SCH (10:10)
[2022-01-06] MEDS: Vitamin B Complex/Vit C/Vit E 1 EACH TABLET PO SCH (10:11)
[2022-01-06] MEDS: Bumetanide 1 MG TABLET PO SCH (10:11)
[2022-01-06] MEDS: Insulin LISPRO 300 UNITS/3 ML VIAL SUBQ SCH ×4 (10:11→20:08)
[2022-01-06 16:03] LABS: BUN/Creatinine Ratio 19 (6-26); Blood Urea Nitrogen 19 mg/dL (8-23); Calcium 8.7 mg/dL (8.6-10.3); Carbon Dioxide 27 mEq/L (23-29); Chloride 105 mEq/L (98-107); Glucose 206 mg/dL (70-105); Magnesium 1.7 mg/dL (1.6-2.6); Osmolality,Calculated 294 (280-300); Potassium 4.2 mEq/L (3.5-5.1); Sodium 138 mEq/L (136-145); Vancomycin,Trough 16 mcg/mL (5-10); eGFR For African Americans > 60 (> 60); eGFR For Non-African Americans > 60 (> 60)
[2022-01-06 17:59] LABS: Basophils # 0.1 K/mcL (0.0-0.2); Basophils % 0.5 %; Eosinophils # 0.1 K/mcL (0.0-0.6); Eosinophils % 0.8 %; Hematocrit 34.2 % (37.5-50.1); Hemoglobin 10.7 g/dL (12.9-16.9); Immature Granulocytes % 0.9 % (0-4); Lymphocytes # 2.4 K/mcL (0.6-4.6); Lymphocytes % 23.4 %; Mean Corpuscular HGB Conc 31.3 g/dL (31.6-35.5); Mean Corpuscular Hemoglobin 28.9 pg (28.0-33.3); Mean Corpuscular Volume 92.4 fL (83.0-100.0); Monocytes # 0.9 K/mcL (0.0-1.3); Monocytes % 8.5 %; Neutrophils # 6.6 K/mcL (1.6-8.9); Platelet Count 264 K/mcL (140-400); Segmented Neutrophils % 65.9 %; White Blood Count 10.1 K/mcL (4.3-11.1)
[2022-01-06] MEDS ORDERED: Warfarin perPT PO PRN (18:00)
[2022-01-06] MEDS: Vancomycin 2,000 MG/520 ML IV.SOLN IVPB SCH (18:04)
[2022-01-06 18:14] LABS: INR 1.2; Prothrombin Time 13.5 Seconds (9.4-12.1)
[2022-01-06] MEDS ORDERED: *HR* Warfarin 5 MG TABLET PO ONE (19:00)
[2022-01-06] MEDS: Gabapentin 300 MG CAPSULE PO SCH (20:34)
[2022-01-07 05:44] LABS: Basophils % 0.5 %; Eosinophils # 0.1 K/mcL (0.0-0.6); Eosinophils % 1.2 %; Hematocrit 33.2 % (37.5-50.1); Hemoglobin 10.1 g/dL (12.9-16.9); Immature Granulocytes % 0.6 % (0-4); Lymphocytes # 2.6 K/mcL (0.6-4.6); Lymphocytes % 30.6 %; Mean Corpuscular HGB Conc 30.4 g/dL (31.6-35.5); Mean Corpuscular Hemoglobin 28.9 pg (28.0-33.3); Mean Corpuscular Volume 95.1 fL (83.0-100.0); Mean Platelet Volume 10.3 fL (9.4-12.4); Monocytes # 0.8 K/mcL (0.0-1.3); Monocytes % 8.8 %; Platelet Count 230 K/mcL (140-400); Red Blood Count 3.49 M/mcL (4.19-5.50); Red Cell Distribution Width 16.1 % (11.5-14.5); Segmented Neutrophils % 58.3 %; White Blood Count 8.5 K/mcL (4.3-11.1)
[2022-01-07 05:50] LABS: INR 1.2; Prothrombin Time 13.2 Seconds (9.4-12.1)
[2022-01-07 05:58] LABS: BUN/Creatinine Ratio 18 (6-26); Blood Urea Nitrogen 17 mg/dL (8-23); Carbon Dioxide 28 mEq/L (23-29); Chloride 105 mEq/L (98-107); Glucose 99 mg/dL (70-105); Magnesium 1.8 mg/dL (1.6-2.6); Osmolality,Calculated 292 (280-300); Potassium 3.9 mEq/L (3.5-5.1); Sodium 140 mEq/L (136-145); eGFR For African Americans > 60 (> 60); eGFR For Non-African Americans > 60 (> 60)
[2022-01-07] MEDS: Insulin LISPRO 300 UNITS/3 ML VIAL SUBQ SCH ×2 (07:35→12:18)
[2022-01-07] MEDS: Vitamin B Complex/Vit C/Vit E 1 EACH TABLET PO SCH (07:44)
[2022-01-07] MEDS: Lactobacillus 1 EACH CAP.SPRINK PO SCH (07:44)
[2022-01-07] MEDS: Metoprolol XL (24 HR) Succ 25 MG TAB.ER.24H PO SCH (07:45)
[2022-01-07] MEDS: *HR* Enoxaparin 40 MG/0.4 ML SYRINGE SQ SCH (07:45)
[2022-01-07] MEDS: Bumetanide 1 MG TABLET PO SCH (07:45)
[2022-01-07 10:23] VITALS: BP 108/69; PULSE 93; TEMP 98.1; O2SAT 98
[2022-01-07] MEDS ORDERED: *HR* Warfarin 5 MG TABLET PO ONE (18:00)
== END 2022-01-07 13:43 | disposition home health service (06) | DRG 854 ==
LOC: 4WAOSI 12:13 → EMEROOARM 12:13 → SUATTDRO 15:38 → 4WAOSI 16:30
PROVIDERS: ADMIT Family Medicine; ATTEND Pharmacist

== ENCOUNTER 2022-01-20 12:09 | Observation (INO) ==
[2022-01-20] MEDS ORDERED: Ipratropium/Albuterol Neb 3 ML IH ONE (12:19)
[2022-01-20 12:36] LABS: Basophils # 0.1 K/mcL (0.0-0.2); Basophils % 0.5 %; Eosinophils % 0.4 %; Hemoglobin 10.8 g/dL (12.9-16.9); Immature Granulocytes % 0.5 % (0-4); Lymphocytes % 17.9 %; Mean Corpuscular HGB Conc 31.8 g/dL (31.6-35.5); Mean Corpuscular Hemoglobin 28.9 pg (28.0-33.3); Mean Corpuscular Volume 90.9 fL (83.0-100.0); Mean Platelet Volume 9.9 fL (9.4-12.4); Monocytes # 0.9 K/mcL (0.0-1.3); Monocytes % 7.7 %; Platelet Count 265 K/mcL (140-400); Red Blood Count 3.74 M/mcL (4.19-5.50); Red Cell Distribution Width 15.5 % (11.5-14.5)
[2022-01-20 12:46] LABS: INR 2.6; Prothrombin Time 28.8 Seconds (9.4-12.1)
[2022-01-20] MEDS ORDERED: Isovue-370 500 ML BOTTLE IVP ONE (13:00)
[2022-01-20 13:02] LABS: Albumin 3.6 g/dL (3.5-5.7); Albumin/Globulin Ratio 1.3 (1.1-2.2); Bilirubin,Direct 0.2 mg/dL (0.0-0.2); Bilirubin,Indirect 0.5 mg/dL (0.0-1.0); Bilirubin,Total 0.7 mg/dL (0.3-1.0); Calcium 9.6 mg/dL (8.6-10.3); Globulin 2.8 g/dL (2.4-3.5); Potassium 4.7 mEq/L (3.5-5.1); Total Protein 6.4 g/dL (6.4-8.9)
[2022-01-20 13:09] LABS: Troponin I 0.03 ng/mL (< 0.04)
[2022-01-20 13:12] LABS: Influenza A PCR Negative (Negative); Influenza B PCR Negative (Negative); Resp. Syncytial Virus PCR Negative (Negative)
[2022-01-20 13:31] LABS: SARS-CoV-2 by PCR (In House) Negative (Negative)
[2022-01-20] MEDS ORDERED: cefTRIAXone 1,000 MG in Water for inj. (sterile) 10 ML IVP ONE (14:15)
[2022-01-20] MEDS ORDERED: Azithromycin 500 MG in 0.9 % Sodium Chloride 250 ML IVPB ONE (14:15)
[2022-01-20] MEDS ORDERED: Bumetanide 1 MG TABLET PO ONE (15:10)
[2022-01-20] MEDS ORDERED: Melatonin 3 MG TABLET PO PRN (15:54)
[2022-01-20] MEDS ORDERED: Ondansetron 4 MG/2 ML VIAL IVP PRN (15:54)
[2022-01-20] MEDS ORDERED: Naloxone 0.4 MG/ML INJ IVP PRN (15:54)
[2022-01-20] MEDS ORDERED: Acetaminophen 325 MG TABLET PO PRN (15:54)
[2022-01-20] MEDS ORDERED: *HR* Dextrose 50 % in Water (Syg) 50 ML SYRINGE IVP PRN (16:10)
[2022-01-20] MEDS ORDERED: D5% in Water 1,000 ML IVC PRN (16:10)
[2022-01-20] MEDS ORDERED: Dextrose 4 GM Chewable Tablets PO PRN ×2 (16:10)
[2022-01-20] MEDS: Insulin LISPRO 300 UNITS/3 ML VIAL SUBQ SCH (17:52)
[2022-01-20] MEDS ORDERED: Warfarin perPT PO PRN (18:00)
[2022-01-20] MEDS ORDERED: *HR* Warfarin 3 MG TABLET PO ONE (18:00)
[2022-01-20] MEDS ORDERED: Vancomycin 1,500 MG/265 ML IV.SOLN IVPB ONE (20:00)
[2022-01-20] MEDS ORDERED: Sennosides/Docusate Sodium TABLET PO ONE (20:00)
[2022-01-20] MEDS ORDERED: Insulin LISPRO 300 UNITS/3 ML VIAL SUBQ SCH (21:00)
[2022-01-20] MEDS ORDERED: Gabapentin 300 MG CAPSULE PO SCH (21:00)
[2022-01-21 01:55] LABS: INR 2.6; Prothrombin Time 28.6 Seconds (9.4-12.1)
[2022-01-21 02:04] LABS: BUN/Creatinine Ratio 24 (6-26); Blood Urea Nitrogen 30 mg/dL (8-23); Calcium 9.4 mg/dL (8.6-10.3); Carbon Dioxide 20 mEq/L (23-29); Chloride 104 mEq/L (98-107); Glucose 83 mg/dL (70-105); Magnesium 1.8 mg/dL (1.6-2.6); Osmolality,Calculated 287 (280-300); Sodium 136 mEq/L (136-145); eGFR For African Americans > 60 (> 60); eGFR For Non-African Americans 56 (> 60)
[2022-01-21] MEDS: Insulin LISPRO 300 UNITS/3 ML VIAL SUBQ SCH ×2 (07:42→11:56)
[2022-01-21] MEDS ORDERED: Metoprolol XL (24 HR) Succ 25 MG TAB.ER.24H PO SCH (09:00)
[2022-01-21] MEDS ORDERED: Bumetanide 1 MG/4 ML VIAL IVP ONE (09:00)
[2022-01-21] MEDS ORDERED: Azithromycin 250 MG TABLET PO SCH (09:00)
[2022-01-21] MEDS ORDERED: Cefdinir 300 MG CAPSULE PO SCH (11:00)
[2022-01-21] MEDS ORDERED: cefTRIAXone 1,000 MG in 0.9 % Sodium Chloride 10 ML IVP SCH (15:30)
[2022-01-21 15:36] VITALS: BP 100/66; PULSE 91; TEMP 98.4; O2SAT 98
[2022-01-21] MEDS ORDERED: *HR* Warfarin 3 MG TABLET PO ONE (18:00)
[2022-01-21] MEDS ORDERED: Lactobacillus 1 EACH CAP.SPRINK PO SCH (21:00)
== END 2022-01-21 17:34 | disposition home health service (06) ==
LOC: EMEROOARM 12:09 → 2ANU 12:09 → SUATTDRO 15:39 → 2ANU 16:50
PROVIDERS: ADMIT Student in an Organized Health Care Education/Training Program; ATTEND Internal Medicine

== ENCOUNTER 2022-02-02 08:33 | Inpatient (IN) ==
[2022-02-02] MEDS ORDERED: Ondansetron 4 MG/2 ML VIAL IVP PRN (11:24)
[2022-02-02] MEDS ORDERED: Naloxone 0.4 MG/ML INJ IVP PRN (11:24)
[2022-02-02] MEDS ORDERED: *HR* HYDROcodone/Acet 5/325 mg TABLET PO PRN (11:24)
[2022-02-02] MEDS ORDERED: *HR* OxyCODONE Immed Rel 5 MG TABLET PO PRN (11:24)
[2022-02-02] MEDS ORDERED: Acetaminophen 325 MG TABLET PO PRN (11:24)
[2022-02-02] MEDS: 0.9 % Sodium Chloride 1,000 ML IVC SCH (14:39)
[2022-02-02 15:14] LABS: Basophils % 0.4 %; Eosinophils # 0.1 K/mcL (0.0-0.6); Hematocrit 35.7 % (37.5-50.1); Hemoglobin 11.2 g/dL (12.9-16.9); Immature Granulocytes % 0.4 % (0-4); Lymphocytes # 1.5 K/mcL (0.6-4.6); Lymphocytes % 27.6 %; Mean Corpuscular HGB Conc 31.4 g/dL (31.6-35.5); Mean Corpuscular Hemoglobin 27.9 pg (28.0-33.3); Mean Corpuscular Volume 88.8 fL (83.0-100.0); Mean Platelet Volume 9.8 fL (9.4-12.4); Monocytes # 0.8 K/mcL (0.0-1.3); Monocytes % 14.5 %; Platelet Count 203 K/mcL (140-400); Red Blood Count 4.02 M/mcL (4.19-5.50); Red Cell Distribution Width 15.7 % (11.5-14.5); Segmented Neutrophils % 56.1 %; White Blood Count 5.3 K/mcL (4.3-11.1)
[2022-02-02 15:21] LABS: Calcium 9.1 mg/dL (8.6-10.3); Magnesium 1.4 mg/dL (1.6-2.6); Potassium 3.6 mEq/L (3.5-5.1)
[2022-02-02 15:28] LABS: INR 1.6; Prothrombin Time 18.2 Seconds (9.4-12.1)
[2022-02-02] MEDS ORDERED: Warfarin perPT PO PRN (18:00)
[2022-02-02] MEDS ORDERED: *HR* Warfarin 3 MG TABLET PO ONE (18:00)
[2022-02-02] MEDS ORDERED: *HR* Warfarin 0.5 MG TABLET PO ONE (18:00)
[2022-02-03 05:50] LABS: Basophils % 0.6 %; Eosinophils # 0.1 K/mcL (0.0-0.6); Eosinophils % 1.5 %; Hematocrit 33.6 % (37.5-50.1); Hemoglobin 10.6 g/dL (12.9-16.9); Immature Granulocytes % 0.2 % (0-4); Lymphocytes # 1.4 K/mcL (0.6-4.6); Lymphocytes % 29.7 %; Mean Corpuscular HGB Conc 31.5 g/dL (31.6-35.5); Mean Corpuscular Hemoglobin 27.5 pg (28.0-33.3); Mean Corpuscular Volume 87.3 fL (83.0-100.0); Mean Platelet Volume 9.8 fL (9.4-12.4); Monocytes # 0.8 K/mcL (0.0-1.3); Monocytes % 16.9 %; Neutrophils # 2.4 K/mcL (1.6-8.9); Platelet Count 189 K/mcL (140-400); Red Blood Count 3.85 M/mcL (4.19-5.50); Red Cell Distribution Width 15.6 % (11.5-14.5); Segmented Neutrophils % 51.1 %; White Blood Count 4.6 K/mcL (4.3-11.1)
[2022-02-03 05:55] LABS: INR 1.6; Prothrombin Time 18.3 Seconds (9.4-12.1)
[2022-02-03 06:13] LABS: Calcium 9.1 mg/dL (8.6-10.3); Magnesium 1.5 mg/dL (1.6-2.6); Potassium 3.2 mEq/L (3.5-5.1)
[2022-02-03] MEDS: 0.9 % Sodium Chloride 1,000 ML IVC SCH ×3 (09:51→21:38)
[2022-02-03] MEDS: DAPTOmycin 500 MG in 0.9 % Sodium Chloride 100 ML IVPB SCH (09:51)
[2022-02-03] MEDS: Metoprolol XL (24 HR) Succ 25 MG TAB.ER.24H PO SCH (15:33)
[2022-02-03] MEDS ORDERED: *HR* Warfarin 3 MG TABLET PO ONE (18:00)
[2022-02-03] MEDS ORDERED: Gabapentin 300 MG CAPSULE PO SCH (21:00)
[2022-02-04 04:22] LABS: INR 1.7; Prothrombin Time 18.4 Seconds (9.4-12.1)
[2022-02-04 04:28] LABS: BUN/Creatinine Ratio 19 (6-26); Blood Urea Nitrogen 23 mg/dL (8-23); Calcium 8.9 mg/dL (8.6-10.3); Carbon Dioxide 24 mEq/L (23-29); Chloride 112 mEq/L (98-107); Glucose 96 mg/dL (70-105); Osmolality,Calculated 302 (280-300); Potassium 3.8 mEq/L (3.5-5.1); Sodium 144 mEq/L (136-145); eGFR For African Americans > 60 (> 60); eGFR For Non-African Americans 59 (> 60)
[2022-02-04] MEDS: Metoprolol XL (24 HR) Succ 25 MG TAB.ER.24H PO SCH (09:31)
[2022-02-04] MEDS: DAPTOmycin 500 MG in 0.9 % Sodium Chloride 100 ML IVPB SCH (09:32)
[2022-02-04 09:47] LABS: C-Reactive Protein 25 mg/L (Less than 10)
[2022-02-04 12:00] VITALS: BP 102/67; PULSE 114; TEMP 97.9; O2SAT 91
[2022-02-04] MEDS ORDERED: *HR* Warfarin 3 MG TABLET PO ONE (18:00)
== END 2022-02-04 15:09 | disposition home health service (06) | DRG 683 ==
LOC: 3ANU → SUATTDRO 11:18
PROVIDERS: ADMIT Pharmacist; ATTEND Hospitalist